=== PATIENT | male | born 1965 | race Caucasian/White ===

== ENCOUNTER → 2020-09-04 16:38 | Outpatient (BNVA) | payer OTHER, SELFPAY | PROVIDERS: Family Provider Nurse Practitioner; PCP Nurse Practitioner; Visit Provider Nurse Practitioner Family | DX: Z11.59 Encounter for screening for other viral diseases (principal) | CPT/HCPCS: 87635 ==

== ENCOUNTER → 2021-02-19 16:24 | Outpatient (BNVA) | payer SELFPAY | PROVIDERS: Family Provider Nurse Practitioner; PCP Nurse Practitioner; Visit Provider Nurse Practitioner | DX: I10 Essential (primary) hypertension (principal); M10.9 Gout, unspecified; J44.9 Chronic obstructive pulmonary disease, unspecified; J30.1 Allergic rhinitis due to pollen; Z20.822 Contact with and (suspected) exposure to COVID-19 | CPT/HCPCS: 80053; 83036; 84443; 84550; 85025 ==

== ENCOUNTER → 2021-07-23 13:43 | Outpatient (BNVA) | payer SELFPAY | PROVIDERS: Family Provider Nurse Practitioner; PCP Nurse Practitioner; Visit Provider Nurse Practitioner | DX: I10 Essential (primary) hypertension (principal) | CPT/HCPCS: 80053; 80061 ==

== ENCOUNTER → 2021-08-01 14:30 | Outpatient (BNVA) | payer SELFPAY | PROVIDERS: Family Provider Nurse Practitioner; PCP Nurse Practitioner; Visit Provider Nurse Practitioner | DX: R73.9 Hyperglycemia, unspecified (principal) | CPT/HCPCS: 83036 ==

== ENCOUNTER 2022-09-24 13:10 | Outpatient (CLI) | payer BC, MEDICAID, SELFPAY ==
--- NOTE | 2022-09-24 13:23 | XR_ITS ---
WS: [id number] Exam: XR lumbar spine 2-3V* [id number] Date/Time of Exam: 09/24/2022 1:28 PM Comparison 07/17/2016 Reason For Exam: M54.9 - Dorsalgia, unspecified No fracture or dislocation. Mild spondylosis. Mild degenerative disc change at L5-S1. Facet DJD at L5 -S1. There is straightening of lumbar spine. XR/XR lumbar spine 2-3V* [id number] IMPRESSION: 1. Mild degenerative changes and straightening. 2. No fracture or malalignment.
--- NOTE | 2022-09-24 13:23 | XR_ITS ---
WS: [id number] Exam: XR hip RT 2-3V wo/w pel* [id number] Date/Time of Exam: 09/24/2022 1:28 PM Reason For Exam: M54.9 - Dorsalgia, unspecified No fracture or dislocation. Minimal degenerative change of the acetabulum. The joint space is relativ ashley well preserved. Normal soft tissues. XR/XR hip RT 2-3V wo/w pel* [id number] IMPRESSION: 1. Minimal degenerative change of the acetabulum. No fracture or other signific ant finding.
--- NOTE | 2022-09-24 13:23 | XR_ITS ---
WS: [id number] Exam: XR knee RT 3V* [id number] Date/Time of Exam: 09/24/2022 1:28 PM Reason For Exam: M25.561 - Pain in right knee No fracture or dislocation. Joint compartments are well-maintained. No joint effusion. Hardware noted in the upper tibia. XR/XR knee RT 3V* [id number] IMPRESSION: 1. No fracture or other significant finding.
== END 2022-09-24 13:11 | disposition home or self-care (01) ==
LOC: RAD 13:12
PROVIDERS: PCP Nurse Practitioner; Visit Provider Nurse Practitioner
DX: M16.11 Unilateral primary osteoarthritis, right hip (principal); M25.561 Pain in right knee; M47.896 Other spondylosis, lumbar region; I73.9 Peripheral vascular disease, unspecified; I10 Essential (primary) hypertension; M10.9 Gout, unspecified; Z79.899 Other long term (current) drug therapy
CPT/HCPCS: 72100; 73502; 73562; 80053; 80061; 81000; 83036; 83721; 84443; 84550

== ENCOUNTER 2022-10-31 09:24 | Inpatient (IN) | payer BC, SELFPAY ==
[2022-10-31] VITALS (16 sets, daily range): BP systolic 95–138; BP diastolic 54–81; PULSE 83–116; RESP 17–26; TEMP 36.7–36.9; O2SAT 82–93; BMI 47.3; BMI 48.9
--- NOTE | 2022-10-31 09:48 | XRR_ITS ---
PROCEDURE INFORMATION: Exam: XR Chest Exam date and time: 10/31/2022 9:53 AM Age: 57 years old Clinical indication: Cough and fever and shortness of breath; Additional info: SOB, cough and fever TECHNIQUE: Imaging protocol: Radiologic exam of the chest. Views: 1 view. COMPARISON: CR XR chest 1V [id number] 07/01/2018 10:15 AM FINDINGS: Lungs: Airspace consolidation in the mid left lung. Pleural spaces: Unremarkable. No pleural effusion. No pneumothorax. Heart/Mediastinum: Unremarkable. No cardiomegaly. Bones/joints: Unremarkable. XR/XR chest 1V portable [id number] IMPRESSION: Left lung pneumonia.
[2022-10-31 10:01] LABS: Basophils # 0.1 10^3/uL (0.0-0.1); Basophils % 0.3 %; Hematocrit 52.2 % (42.0-52.0); Hemoglobin 16.8 g/dL (11.7-16.6); Lymphocytes # 0.6 10^3/uL (0.8-4.8); Lymphocytes % 3.1 %; Mean Corpuscular HGB Conc 32.2 g/dL (30.0-36.0); Mean Corpuscular Hemoglobin 33.1 pg (28.0-34.0); Mean Corpuscular Volume 102.8 fl (80-94); Mean Platelet Volume 10.2 fL (7.4-10.4); Monocytes # 1.8 10^3/uL (0.2-0.9); Monocytes % 9.5 %; Neutrophils # 16.25 10^3/uL (1.8-7.7); Neutrophils % 86.7 %; Nucleated Red Blood Cells % 0 %; Platelet Count 240 10^3/cmm (130-400); Red Blood Count 5.08 10^6/uL (4.1-5.3); Red Cell Distribution Width 13.6 % (12.1-15.1); White Blood Count 18.7 10^3/uL (4.0-10.0)
--- NOTE | 2022-10-31 10:03 | W.ED.SOB ---
Documented by User: JANICE Meadows 11/01/22 07:17 HPI - SOB/Dyspnea General: Chief Complaint: Shortness of Breath/Dyspnea Stated Complaint: SOB, chest pain Time Seen by Provider: 10/31/22 09:48 History of Present Illness: HPI Narrative: Patient is a 57-year-old male comes to the ED with shortness of breath. Patient has a medical history of COPD and hypertension. Patient is not on any oxygen at home and uses albuterol nebulizer breathing treatments as needed for any shortness of breath. Symptoms started approximately 2 weeks ago. He has a productive cough with yellowish sputum color. He also reports having fever as well. Shortness of breath is worsened over the past 2 weeks. Over the past couple days he has developed some pleuritic chest pain on the left side. Associated symptoms: Reports chest pain and fever(s); Deny abdominal pain, nausea, orthopnea, palpitations or vomiting Review of Systems Const: Reports: fever(s); Denies: chills or fatigue Eyes: Denies: change in vision or eye discomfort ENMT: Denies: throat pain, odynophagia, nasal discharge or nasal congestion Card: Reports: chest pain; Denies: palpitations, edema, swelling of feet/ankles, dyspnea on exertion or orthopnea Resp: Reports: dyspnea, productive cough, wheezing and pain on inspiration; Denies: non-productive cough GI: Denies: abdominal pain, nausea, vomiting, diarrhea, constipation or hematochezia : Denies: flank pain, difficulty urinating, dysuria or hematuria Musc: Denies: neck pain, back pain or extremity swelling Skin/Breast: Denies: rash or new lesions Neuro: Denies: headache(s), numbness in extremities or weakness in extremities PFS ED PFSH: Medical History (Updated 10/31/22 @ 13:23 by Georgi Lerma MD) Cigarette smoker COPD (chronic obstructive pulmonary disease) Essential (primary) hypertension Gout Hyperlipidemia Obstructive sleep apnea Patient reports he is intolerant of mask Seasonal allergic rhinitis due to pollen Surgical History (Updated 10/31/22 @ 13:15 by Georgi Lerma MD) History of hand surgery History of open reduction and internal fixation (ORIF) procedure Right tib/fib Family History Other Diabetes Heart disease Social History Smoking and tobacco status: current every day smoker Second hand smoke exposure: No Smoking risk assessment/counseling performed?: No Alcohol intake: current Alcohol intake frequency: holidays/special occasions only Desire information about alcohol rehabilitation?: No Counseling given: No Desire information about substance/drug rehabilitation?: No Counseling given: No Adopted: No Caregiver/support person: No Lives independently: Yes Household members: spouse Housing: House Marital status: Number of children: 2 service: No Current occupational status: employed History of recent travel: No Current gender identity: Male Physical Exam Const: COMMON NORMALS: patient oriented x3 and alert GENERAL APPEARANCE: cooperative HENMT: COMMON NORMALS: normocephalic HEAD & SCALP: normocephalic MOUTH: Normal oral and palatal mucosa present THROAT: posterior oropharynx normal and uvula midline Neck/C-Spine: COMMON NORMALS: supple GENERAL: Yes normal visual inspection Resp: COMMON NORMALS: normal respiratory effort, No retractions and No use of accessory muscles AUSCULTATION: wheezes expiratory wheezes and throughout and diminished lung sounds bilateral in the lower lung gusman Cardio: COMMON NORMALS: regular rate, regular rhythm, S1 normal heart sound present, S2 normal heart sound present, No gallops present (Cardio), No clicks present (Cardio), No murmurs present (Cardio) and Peripheral pulses 2+ throughout RATE: regular rate RHYTHM: regular rhythm HEART SOUNDS: S1 normal heart sound present and S2 normal heart sound present PERIPHERAL PULSES: Peripheral pulses 2+ throughout GI: COMMON NORMALS: Normal to inspection, nondistended, normoactive bowel sounds present, Soft to palpation, non-tender and no masses PALPATION: Yes Soft to palpation : COMMON NORMALS: Yes no CVA tenderness BLADDER/KIDNEY EXAM: Yes no CVA tenderness Back/Pelvis: COMMON NORMALS: no CVA tenderness Extremity: COMMON NORMALS: normal to inspection Neuro: COMMON NORMALS: patient oriented x3 SENSORIUM/ORIENTATION: Yes alert GAIT: Yes Normal gait present Skin: GENERAL SKIN EXAM: dry skin Course Vital Signs: Vital signs: Vital Signs Temperature 97.9 F 11/01/22 04:00 Pulse Rate 98 11/01/22 04:01 Respiratory Rate 18 11/01/22 04:01 Blood Pressure 114/67 11/01/22 04:00 Pulse Oximetry 92 11/01/22 04:01 Oxygen Delivery Me thod 11/01/22 04:01 Oxygen Flow Rate 5 11/01/22 04:01 MDM - SOB/Dyspnea Lab Data 10/31/22 09:50 10/31/22 09:50 Labs/Radiology: Radiology Impressions Chest X-Ray 10/31/22 09:48 IMPRESSION: Left lung pneumonia. Laboratory Results WBC 18.7 10^3/uL (4.0-10.0) H 10/31/22 09:50 RBC 5.08 10^6/uL (4.1-5.3) 10/31/22 09:50 Hgb 16.8 g/dL (11.7-16.6) H 10/31/22 09:50 Hct 52.2 % (42.0-52.0) H 10/31/22 09:50 MCV 102.8 fl (80-94) H 10/31/22 09:50 MCH 33.1 pg (28.0-34.0) 10/31/22 09:50 MCHC 32.2 g/dL (30.0-36.0) 10/31/22 09:50 RDW 13.6 % (12.1-15.1) 10/31/22 09:50 Plt Count 240 10^3/cmm (130-400) 10/31/22 09:50 MPV 10.2 fL (7.4-10.4) 10/31/22 09:50 Neut % (Auto) 86.7 % 10/31/22 09:50 Lymph % (Auto) 3.1 % 10/31/22 09:50 [place] % (Auto) 9.5 % 10/31/22 09:50 Eos % (Auto) 0.0 % 10/31/22 09:50 Baso % (Auto) 0.3 % 10/31/22 09:50 Neut # (Auto) 16.25 10^3/uL (1.8-7.7) H 10/31/22 09:50 Lymph # (Auto) 0.6 10^3/uL (0.8-4.8) L 10/31/22 09:50 [place] # (Auto) 1.8 10^3/uL (0.2-0.9) H 10/31/22 09:50 Eos # (Auto) 0.0 10^3/uL (0.0-0.8) 10/31/22 09:50 Baso # (Auto) 0.1 10^3/uL (0.0-0.1) 10/31/22 09:50 Nucleated RBC % (auto) 0 % 10/31/22 09:50 Nucleated RBCs # 0.0 /100WBC 10/31/22 09:50 Specimen Type Arterial 10/31/22 10:22 Sample Site Radial, right 10/31/22 10:22 ABG pH 7.38 (7.35-7.45) 10/31/22 10:22 ABG pCO2 47.5 mmHg (35-45) H 10/31/22 10:22 ABG pO2 67.4 mmHg (80.0-100.0) L 10/31/22 10:22 ABG HCO3 28.2 mmol/L (22-26) H 10/31/22 10:22 ABG O2 Saturation 95.1 10/31/22 10:22 ABG Base Excess 2.2 mmol/L (-2.0-2.0) H 10/31/22 10:22 Lambert Test Pos 10/31/22 10:22 A-a O2 Gradient 17.1 mmHg (5-10) H 10/31/22 10:22 Hematocrit 52.2 % (42-52) H 10/31/22 10:22 Hgb O2 Saturation 93.1 % (95-100) L 10/31/22 10:22 Carboxyhemoglobin 1.6 %THgb (0.4-20.1) 10/31/22 10:22 Methemoglobin 0.5 % (0.4-1.5) 10/31/22 10:22 Total Hemoglobin 17.0 g/dL (14-18) 10/31/22 10:22 Sodium 133.0 mmol/L (131-143) 10/31/22 10:22 Potassium 4.2 mmol/L (3.5-5.0) 10/31/22 10:22 Glucose 124.0 mg/dL (70-115) H 10/31/22 10:22 Ionized Calcium 1.2 mmol/L (1.1-1.4) 10/31/22 10:22 O2 Delivery Device Nc 10/31/22 10:22 O2 Liters/Min 4.0 % 10/31/22 10:22 FiO2 36.0 % 10/31/22 10:22 Sequencing Machine Operator ID Cak 10/31/22 10:22 Sodium 132 mmol/L (136-145) L 10/31/22 09:50 Potassium 4.6 mmol/L (3.5-5.1) 10/31/22 09:50 Chloride 95 mmol/L (98-107) L 10/31/22 09:50 Carbon Dioxide 25 mmol/L (22-29) 10/31/22 09:50 Anion Gap 16.6 (5-19) 10/31/22 09:50 BUN 23 mg/dL (6-20) H 10/31/22 09:50 Creatinine 1.1 mg/dL (0.7-1.2) 10/31/22 09:50 GFR Calculation 69.0 mL/min (90-130) L 10/31/22 09:50 Glucose 129 mg/dL (65-115) H 10/31/22 09:50 Calculated Osmolality 279 mOsm/kg (285-295) L 10/31/22 09:50 Lactic Acid 1.7 mmol/L (0.5-2.2) 10/31/22 09:50 Calcium 9.2 mg/dL (8.5-10.5) 10/31/22 09:50 Total Bilirubin 0.5 mg/dL (0.15-1.2) 10/31/22 09:50 AST 38 U/L (0-40) 10/31/22 09:50 ALT 27 U/L (0-41) 10/31/22 09:50 Alkaline Phosphatase 85 U/L (40-130) 10/31/22 09:50 Troponin T Baseline 20 ng/L (0-15) H 10/31/22 09:50 Troponin T 120 Minute 20.50 ng/L (0-15) H 10/31/22 11:55 Delta Troponin T 0.50 ABS# (0-10) 10/31/22 11:55 Total Protein 7.0 g/dL (6.6-8.7) 10/31/22 09:50 Albumin 3.9 g/dL (3.5-5.2) 10/31/22 09:50 Globulin 3.1 g/dL (1.3-4.6) 10/31/22 09:50 Influenza Type A Ag Positive (Negative) H 10/31/22 10:49 Influenza Type B Ag Negative (Negative) 10/31/22 10:49 SARS-CoV-2 Ag (Rapid) negative (Negative) 10/31/22 10:49 Discharge Plan Discharge Patient Disposition: Admitted As Inpatient Admit Provider: Georgi Lerma Clinical Impression: Community acquired pneumonia, Acute exacerbation of chronic obstructive airways disease Condition: Stable Sign Out Sign Out Data: Patient Sign Out occurred on 10/31/22 at 12:03. Patient's care was discussed, and care was transferred from to Alden Rubi DO. Coding Level of Care Code ED Professor Of Mathematics for Chg Fwd Exam Comprehensive Documented by User: Alden Rubi DO 10/31/22 12:39 HPI - SOB/Dyspnea General: Chief Complaint: Shortness of Breath/Dyspnea Stated Complaint: SOB, chest pain Time Seen by Provider: 10/31/22 09:48 PFSH ED PFSH: Medical History (Updated 10/31/22 @ 13:23 by Georgi Lerma MD) Cigarette smoker COPD (chronic obstructive pulmonary disease) Essential (primary) hypertension Gout Hyperlipidemia Obstructive sleep apnea Patient reports he is intolerant of mask Seasonal allergic rhinitis due to pollen Surgical History (Updated 10/31/22 @ 13:15 by Georgi Lerma MD) History of hand surgery History of open reduction and internal fixation (ORIF) procedure Right tib/fib Family History Other Diabetes Heart disease Social History Smoking and tobacco status: current every day smoker Second hand smoke exposure: No Smoking risk assessment/counseling performed?: No Alcohol intake: current Alcohol intake frequency: holidays/special occasions only Desire information about alcohol rehabilitation?: No Counseling given: No Desire information about substance/drug rehabilitation?: No Counseling given: No Adopted: No Caregiver/support person: No Lives independently: Yes Household members: spouse Housing: House Marital status: Number of children: 2 service: No Current occupational status: employed History of recent travel: No Current gender identity: Male Course Vital Signs: Vital signs: Vital Signs Temperature 97.9 F 11/01/22 04:00 Pulse Rate 98 11/01/22 04:01 Respiratory Rate 18 11/01/22 04:01 Blood Pressure 114/67 11/01/22 04:00 Pulse Oximetry 92 11/01/22 04:01 Oxygen Delivery Me thod 11/01/22 04:01 Oxygen Flow Rate 5 11/01/22 04:01 MDM - SOB/Dyspnea Medical Decision Making 57-year-old male initially seen by midlevel with large left lower lobe pneumonias requiring 5 L normally is not on oxygen. Elevated white count with a left shift cultures have been ordered patient started on IV antibiotics discussed Dr. Lerma he is already reviewed the chart will admit he has written the orders for the admission. Seen and examined the patient findings unchanged from documented by midlevel. Medical Records I reviewed the patient's medical records. Lab Data I reviewed the patient's lab results. 10/31/22 09:50 10/31/22 09:50 Labs/Radiology: Radiology Impressions Chest X-Ray 10/31/22 09:48
--- NOTE | 2022-10-31 10:09 | ECG_ITS ---
[facility] Test Date: 2022-10-31 Pat Name: Jason Thurman Department: Room: Gender: Male Cad Technician: : 1965 Requested By: Alden Leonard Order Number: [id number] Conrado MD: Marjorie Carrasco M.D. Measurements Intervals [place] Rate: 102 P: 68 MA: 161 QRS: 113 QRSD: 97 T: 43 QT: 346 QTc: 452 Interpretive Statements SINUS TACHYCARDIA INCOMPLETE RIGHT BUNDLE BRANCH BLOCK Compared to ECG 07/01/2018 09:44:43 Incomplete right bundle-branch block now present Atrial abnormality now present Sinus rhythm no longer present Electronically Signed On 11-01-2022 7:50:10 ELECTRICIAN STATION ASSISTANT by Marjorie Carrasco M.D. [id number]
[2022-10-31] MEDS: ipratropium-albuterol 3 mL Neb 6 ML INHALATION (10:19)
[2022-10-31 10:25] LABS: Alanine Aminotransferase 27 U/L (0-41); Albumin Level 3.9 g/dL (3.5-5.2); Alkaline Phosphatase 85 U/L (40-130); Anion Gap 16.6 (5-19); Aspartate Amino Transferase 38 U/L (0-40); Blood Urea Nitrogen 23 mg/dL (6-20); Calcium 9.2 mg/dL (8.5-10.5); Carbon Dioxide 25 mmol/L (22-29); Chloride 95 mmol/L (98-107); Globulin 3.1 g/dL (1.3-4.6); Glucose 129 mg/dL (65-115); Osmolality Calculated 279 mOsm/kg (285-295); Potassium 4.6 mmol/L (3.5-5.1); Sodium 132 mmol/L (136-145); Total Bilirubin 0.5 mg/dL (0.15-1.2)
[2022-10-31 10:27] LABS: Troponin(5th) Baseline 20 ng/L (0-15)
[2022-10-31] MEDS: cefTRIAXone 1,000 MG in sodium chloride 0.9% (plus) 50 ML 100 MG IV (10:30)
[2022-10-31 10:33] LABS: ABG PCO2 47.5 mmHg (35-45); ABG PH Result 7.38 (7.35-7.45); Alveolar-Arterial Oxygen Gradi 17.1 mmHg (5-10); Arterial Blood Gas Hematocrit 52.2 % (42-52); Base Excess ABG 2.2 mmol/L (-2.0-2.0); Blood Gas Allen Test Pos; Blood Gas Operator Identificat CAK; Blood Gas Sample Site Radial, right; Blood Gas Sample Type Arterial; Carboxyhemoglobin 1.6 %THgb (0.4-20.1); HCO3 ABG 28.2 mmol/L (22-26); HGB O2 Sat 93.1 % (95-100); Ionized Calcium Level - ABG 1.2 mmol/L (1.1-1.4); Methemoglobin 0.5 % (0.4-1.5); Oxygen Device NC; Oxygen Saturation ABG 95.1; PO2 ABG 67.4 mmHg (80.0-100.0); Potassium Level - ABG 4.2 mmol/L (3.5-5.0)
[2022-10-31 11:16] LABS: Influenza A by IFA Positive (Negative); Influenza B by IFA Negative (Negative)
[2022-10-31 11:19] LABS: SARS Covid-2 Antigen negative (Negative)
[2022-10-31] MEDS: azithromycin 500 MG in sodium chloride 0.9% 250 ML 250 MG IV (11:22)
[2022-10-31 11:30] LABS: Lactic Sepsis W/Reflex 1.7 mmol/L (0.5-2.2)
--- NOTE | 2022-10-31 12:06 | ECG_ITS ---
[facility] Test Date: 2022-10-31 Pat Name: Jason Thurman Department: Room: Gender: Male Devulcanizer Charger: : 1965 Requested By: Abelino Hernandez Order Number: [id number] Camp MD: Marjorie Carrasco M.D. Measurements Intervals [place] Rate: 98 P: 68 [place]: 161 QRS: 110 QRSD: 99 T: 53 QT: 356 QTc: 455 Interpretive Statements SINUS RHYTHM INCOMPLETE RIGHT BUNDLE BRANCH BLOCK [90+ ms QRS DURATION, TERMINAL R IN V1/V2, 40+ ms S IN I/aVL/V4/V5/V6] RIGHT VENTRICULAR HYPERTROPHY [SOME/ALL OF: PROMINENT R IN V1, LATE TRANSITION, RAD, WILMAR, SSS] Compared to ECG 10/31/2022 10:09:00 Sinus tachycardia no longer present Electronically Signed On 11-01-2022 7:56:26 SCULPTURE CONSERVATOR by Marjorie Carrasco M.D. [id number]
--- NOTE | 2022-10-31 12:40 | P.HP_ITS ---
Providers/Chief Complaint Admitting Physician: Georgi Lerma MD, Hospitalist Primary Care Provider: ZOEY OsorioP-Oren Chief Complaint: SOB, chest pain History of Present Illness Jason Thurman is a 57 year old male the presents to the emergency department with significant shortness of breath. He has been short of breath for about 2 weeks, but worse lately. He has been producing some sputum but no hemoptysis. He has felt fever and chills at home but has not really taken his temperature. He reports at baseline he does wheeze some. Reports he always has a little bit of lower extremity swelling, but it is no more than usual. Reports he quit smoking 1 week ago. Review of Systems General: Reports: 10 or more systems reviewed and unremarkable except in HPI and below Const: Reports: fever(s) and chills Eyes: Denies: change in vision ENMT: Denies: throat pain Card: Reports: swelling of feet/ankles (chronic); Denies: chest pain Resp: Reports: dyspnea and productive cough; Denies: hemoptysis GI: Denies: abdominal pain, nausea, vomiting, hematemesis, hematochezia or melena : Denies: flank pain Musc: Denies: neck pain Skin/Breast: Denies: rash Neuro: Denies: headache(s) Psych: Denies: anxiety or depression Endo: Denies: polyuria Tony/Lymph: Denies: easy bruising All/Imm: Denies: urticaria Medications/Allergies Home Medications Medication Instructions Recorded Confirmed Last Taken Type nitroglycerin 0.4 mg sublingual 0.4 mg sublingual Q5M PRN chest 10/15/21 10/31/22 Unknown Rx tablet (Nitrostat) pain #25 tabs albuterol sulfate 90 mcg/actuation 2 puff inhalation Q6H PRN 09/24/22 10/31/22 Unknown Rx aerosol inhaler (ProAir HFA) shortness of breath or wheezing #18 grams allopurinol 300 mg tablet 300 mg PO BID #60 tabs 09/24/22 10/31/22 10/30/22 Rx clopidogrel 75 mg tablet (Plavix) 75 mg PO DAILY #30 tabs 09/24/22 10/31/22 10/30/22 Rx fluticasone propionate 110 2 puff inhalation BID #12 grams 1010/31/22 10/31/22 Rx mcg/actuation HFA aerosol inhaler (Flovent HFA) furosemide 20 mg tablet (Lasix) 20 mg PO BID #60 tabs 09/24/22 10/31/22 10/30/22 Rx metoprolol succinate 50 mg 50 mg PO DAILY #30 tabs 09/24/22 10/31/22 10/30/22 Rx tablet,extended release 24 hr (Toprol XL) montelukast 10 mg tablet 10 mg PO DAILY #30 tabs 09/24/22 10/31/22 10/30/22 Rx (Singulair) spironolactone 50 mg tablet 50 mg PO QAM #30 tabs 09/24/22 10/31/22 10/30/22 Rx valsartan 40 mg tablet (Diovan) 40 mg PO DAILY #30 tabs 09/24/22 10/31/22 10/30/22 Rx fenofibrate nanocrystallized 145 145 mg PO DAILY #30 tabs 10/01/22 10/31/22 1 12/31/21 Rx mg tablet (Tricor) albuterol sulfate 2.5 mg/3 mL 2.5 mg (3 mL) inhalation Q4H PRN 10/30/22 10/31/22 Unknown Rx (0.083 %) solution for nebulization shortness of breath or wheezing #75 mL Allergies Allergy/AdvReac Type Severity Reaction Status Date / Time No Known Allergies Allergy Verified 10/31/22 10:11 PFSH Acute PFSH: Medical History (Updated 10/31/22 @ 13:23 by Georgi Lerma MD) Cigarette smoker COPD (chronic obstructive pulmonary disease) Essential (primary) hypertension Gout Hyperlipidemia Obstructive sleep apnea Patient reports he is intolerant of mask Seasonal allergic rhinitis due to pollen Surgical History (Updated 10/31/22 @ 13:15 by Georgi Lerma MD) History of hand surgery History of open reduction and internal fixation (ORIF) procedure Right tib/fib Family History Other Diabetes Heart disease Social History Smoking and tobacco status: current every day smoker Second hand smoke exposure: No Smoking risk assessment/counseling performed?: No Alcohol intake: current Alcohol intake frequency: holidays/special occasions only Desire information about alcohol rehabilitation?: No Counseling given: No Desire information about substance/drug rehabilitation?: No Counseling given: No Adopted: No Caregiver/support person: No Lives independently: Yes Household members: spouse Housing: House Marital status: Number of children: 2 service: No Current occupational status: employed History of recent travel: No Current gender identity: Male Vitals/I&O/Wt Last Vital Signs Temp 98.1 F 10/31/22 09:30 Pulse 102 H 10/31/22 12:28 Resp 23 H 10/31/22 12:28 BP 103/54 10/31/22 12:28 Pulse Ox 92 10/31/22 12:28 O2 Del Method 10/31/22 12:28 O2 Flow Rate 5 10/31/22 12:28 10/30/22 10/31/22 10/31/22 22:59 06:59 14:59 Intake Total 300 / 300 Balance 300 / 300 Weight last 48 hrs Weight 149.685 kg Physical Exam Narrative: General exam is an obese white male, with elevated respiratory rate and mild retractions. Wheezing is heard without a stethoscope. He is able to complete full sentences. HEENT: Atraumatic normocephalic. Oropharynx is crowded but clear Neck is supple, obese, no lymphadenopathy or thyromegaly Cardiovascular tachycardic, no murmur Lungs bilateral expiratory wheezes. No crackles. Diminished breath sounds noted on the left. Abdomen is soft obese nontender with positive bowel sounds. No obvious or ganomegaly but exam difficult. Small umbilical hernia is noted, which is easily reducible. exam is deferred Extremities show no cyanosis or clubbing. 1-2+ edema is noted bilaterally with ichthyosis consistent with longstanding venous stasis. Refill is quick. Skin see findings above Neuro no obvious focal deficits. Data 10/31/22 09:50 10/31/22 09:50 Other Labs: ABG demonstrates pH 7.38, PCO2 of 47, PO2 of 67 on 4 L LFTs are normal Troponin 20 at baseline and repeat at 2 hours is 20 Albumin 3.9 Calcium normal Influenza a is positive. Influenza B negative. COVID rapid is negative. Chest x-ray demonstrates left lung pneumonia. Blood cultures have been drawn but I believe they were drawn after antibiotics were given EKG sinus rhythm, borderline tachycardia, right axis deviation, possible RVH, no significant ST-T wave changes. A&P Assessment and plan (1) Community acquired pneumonia: Patient presents with history of illness for the last 2 weeks. X-rays impressive for pneumonia, and there is concern for secondary bacterial pneumonia even though influenza a is positive. Sputum culture Initiate antibiotics for Rocephin and azithromycin for community-acquired pneumonia Wean oxygen as tolerated. Prior to developing illness he is on room air at home. MRSA PCR (2) Acute exacerbation of chronic obstructive airways disease: Patient with active wheezing consistent with exacerbation of COPD DuoNeb every 4 hours Budesonide twice daily He received a dose of Solu-Medrol in the emergency department. Continue 60 mg IV every 12 hours (3) Influenza A: Influenza A is positive Is impossible currently to know exactly when his illness started Secondary to his degree of illness now and hypoxia will initiate Tamiflu 75 mg twice daily with plan for 5 days of treatment. See above (4) Essential (primary) hypertension: Continue home medications Plan Presumed coronary disease. About 1 year ago or more patient had some chest discomfort, and was started on Plavix, ultimately A. fib rate for possibility of coronary disease. A nuclear stress test had been ordered at that time, but according to the patient insurance refused this. We will not change these medicines at this time. This should be readdressed as an outpatient as he currently does not have symptoms of coronary ischemia. Full code Lovenox for DVT prophylaxis Attestations Medical Necessity Statement*: Will need greater than 2 midnight stay for evaluation and treatment of pneumonia, influenza A, COPD exacerbation Coding Level of Care Code Acute Electrical Linesworker for [facility] Sur[facility] Diagnoses Community acquired pneumonia J18.9 Acute exacerbation of chronic obstructive airways disease J44.1 Influenza A J10.1 Essential (primary) hypertension I10
[2022-10-31] MEDS: enoxaparin 40 mg/0.4 mL Syringe SUBCUT (12:53)
--- NOTE | 2022-10-31 14:41 | PC.NURSE ---
infused 2,000 mls of fluid and sent the remaining three bags with pt to [facility]
[2022-10-31 16:10] LABS: Troponin 5 6HR 13.24 ng/L (0-15)
[2022-10-31 16:24] LABS: Troponin 5 6HR Delta -6.76 ng/L (0-12)
[2022-10-31] MEDS: ipratropium-albuterol 3 mL Neb INHALATION ×2 (16:47→20:23)
[2022-10-31] MEDS: oseltamivir phosphate 75 mg Capsule PO (17:42)
[2022-10-31] MEDS: allopurinol 300 mg Tablet PO (17:42)
[2022-10-31] MEDS: budesonide 0.5 mg/2 mL Neb INHALATION (20:23)
[2022-11-01] VITALS (16 sets, daily range): BP systolic 104–140; BP diastolic 65–74; PULSE 74–102; RESP 16–19; TEMP 36.4–36.9; O2SAT 91–95
[2022-11-01] MEDS: ipratropium-albuterol 3 mL Neb INHALATION ×6 (00:33→20:40)
[2022-11-01] MEDS: spironolactone 25 mg Tablet 50 MG PO (04:30)
[2022-11-01 05:52] LABS: Basophils % 0.2 %; Lymphocytes # 0.7 10^3/uL (0.8-4.8); Lymphocytes % 3.7 %; Mean Corpuscular HGB Conc 31.4 g/dL (30.0-36.0); Mean Corpuscular Hemoglobin 33.3 pg (28.0-34.0); Mean Platelet Volume 10.1 fL (7.4-10.4); Monocytes # 0.7 10^3/uL (0.2-0.9); Monocytes % 3.5 %; Neutrophils % 91.8 %; Nucleated Red Blood Cells % 0 %; Platelet Count 269 10^3/cmm (130-400); Red Blood Count 4.81 10^6/uL (4.1-5.3); Red Cell Distribution Width 13.7 % (12.1-15.1)
[2022-11-01 06:16] LABS: Alanine Aminotransferase 28 U/L (0-41); Albumin Level 3.3 g/dL (3.5-5.2); Alkaline Phosphatase 84 U/L (40-130); Anion Gap 11.9 (5-19); Aspartate Amino Transferase 29 U/L (0-40); Blood Urea Nitrogen 27 mg/dL (6-20); Calcium 9.6 mg/dL (8.5-10.5); Carbon Dioxide 30 mmol/L (22-29); Chloride 95 mmol/L (98-107); Globulin 4.5 g/dL (1.3-4.6); Glucose 144 mg/dL (65-115); Osmolality Calculated 282 mOsm/kg (285-295); Potassium 4.9 mmol/L (3.5-5.1); Sodium 132 mmol/L (136-145); Total Bilirubin 0.2 mg/dL (0.15-1.2); Total Protein 7.8 g/dL (6.6-8.7)
[2022-11-01] MEDS: budesonide 0.5 mg/2 mL Neb INHALATION ×2 (07:58→20:40)
[2022-11-01] MEDS: metoprolol succinate ER (24 HR) 50 mg Tablet PO (10:19)
[2022-11-01] MEDS: allopurinol 300 mg Tablet PO ×2 (10:19→17:44)
[2022-11-01] MEDS: clopidogrel 75 mg Tablet PO (10:19)
[2022-11-01] MEDS: fenofibrate 145 mg Tablet PO (10:19)
[2022-11-01] MEDS: montelukast sodium 10 mg Tablet PO (10:19)
[2022-11-01] MEDS: losartan 50 mg Tablet 25 MG PO (10:20)
[2022-11-01] MEDS: oseltamivir phosphate 75 mg Capsule PO ×2 (10:25→17:44)
--- NOTE | 2022-11-01 11:47 | P.PN_ITS ---
Subjective Subjective: He feels he is gradually improving. He is still having wheezing. He is coughing, coughing up phlegm, states that now phlegm is coming up more easily. He does not normally use supplemental oxygen. He states that the pleuritic burning in his lungs has been gradually improving. Vitals/I&O/Wt Last Vital Signs Temp 98.4 F 11/01/22 11:25 Pulse 95 11/01/22 11:25 Resp 18 11/01/22 11:25 BP 140/74 11/01/22 11:25 Pulse Ox 94 11/01/22 11:25 O2 Del Method 11/01/22 11:25 O2 Flow Rate 5 11/01/22 07:58 10/31/22 11/01/22 11/01/22 22:59 06:59 14:59 Intake Total 240 / 540 240 / 780 240 / 240 Output Total 1220 / 1220 Balance 240 / 540 -980 / -440 240 / 240 Weight last 48 hrs Weight 154.477 kg Weight 149.685 kg Physical Exam Narrative: Sitting up at edge of bed. Const: COMMON NORMALS: patient oriented x3 and alert GENERAL APPEARANCE: cooperative NUTRITIONAL APPEARANCE: obese ORIENTATION/CONSCIOUSNESS: Yes awake HENMT: COMMON NORMALS: oropharynx normal Neck/C-Spine: COMMON NORMALS: no JVD Resp: COMMON NORMALS: normal respiratory effort AUSCULTATION: wheezes and diminished lung sounds OTHER: NC Cardio: COMMON NORMALS: no JVD, regular rhythm, S1 normal heart sound present, S2 normal heart sound present and No murmurs present (Cardio) RHYTHM: regular rhythm HEART SOUNDS: S1 normal heart sound present and S2 normal heart sound present GI: COMMON NORMALS: Normal to inspection, nondistended, normoactive bowel sounds present, Soft to palpation and non-tender PALPATION: Yes Soft to palpation Extremity: COMMON NORMALS: no joint enlargement and no pedal edema Neuro: COMMON NORMALS: patient oriented x3 and moves all extremities SENSORIUM/ORIENTATION: Yes alert Skin: COMMON NORMALS: no rashes or lesions noted GENERAL SKIN EXAM: no rashes or lesions noted Data 11/01/22 05:20 11/01/22 05:20 Micro: Microbiology 10/31/22 16:50 Gram Stain - Final Sputum - Expectorated Sputum 10/31/22 12:50 Blood Culture - Preliminary Blood SPECIMEN COLLECTED 10/31/22 12:45 Blood Culture - Preliminary Blood SPECIMEN COLLECTED A&P Assessment and plan (1) Community acquired pneumonia: Acute hypoxic respiratory failure requiring 5 L nasal cannula oxygen. Oxygen requirement so far not improved. Subjectively feels slightly better. Continue ceftriaxone, azithromycin. Follow-up sputum culture. MRSA PCR. Wean oxygen as tolerated. Prior to developing illness he is on room air at home. (2) Acute exacerbation of chronic obstructive airways disease: Severe COPD exacerbation with dyspnea, productive cough, hypoxia. Continues to have wheezing, diminished air entry. For now we will not decrease solu Medrol just yet. Continue antibiotics as above. Follow-up culture. Patient with active wheezing consistent with exacerbation of COPD DuoNeb every 4 hours Budesonide twice daily He received a dose of Solu-Medrol in the emergency department. Continue 60 mg IV every 12 hours (3) Influenza A: Continue Tamiflu. Supportive care as above. Influenza A is positive (4) Essential (primary) hypertension: Continue home medications Plan Presumed coronary disease. About 1 year ago or more patient had some chest discomfort, and was started on Plavix, ultimately A. fib rate for possibility of coronary disease. A nuclear stress test had been ordered at that time, but according to the patient insurance refused this. We will not change these medicines at this time. This should be readdressed as an outpatient as he currently does not have symptoms of coronary ischemia. Full code Lovenox for DVT prophylaxis Attestations Medical Necessity Statement*: Continue admission for management of hypoxic respiratory failure, community-acquired pneumonia superimposed on influenza A pneumonia, COPD exacerbation. Coding Level of Care Code Acute Manager Voice for [facility] Fwd Exam Comprehensive Diagnoses Community acquired pneumonia J18.9 Acute exacerbation of chronic obstructive airways disease J44.1 Influenza A J10.1 Essential (primary) hypertension I10
[2022-11-01] MEDS: cefTRIAXone 1,000 MG in sodium chloride 0.9% (plus) 50 ML 100 MG IV (11:57)
[2022-11-01] MEDS: azithromycin 500 MG in sodium chloride 0.9% 250 ML 250 MG IV (12:29)
[2022-11-01] MEDS: enoxaparin 40 mg/0.4 mL Syringe SUBCUT (14:32)
[2022-11-02] VITALS (16 sets, daily range): BP systolic 112–130; BP diastolic 68–83; PULSE 73–91; RESP 16–21; TEMP 36.4–36.7; O2SAT 92–96
[2022-11-02] MEDS: ipratropium-albuterol 3 mL Neb INHALATION ×5 (03:34→21:26)
[2022-11-02] MEDS: spironolactone 25 mg Tablet 50 MG PO (05:08)
[2022-11-02 06:10] LABS: Basophils % 0.2 %; Hematocrit 50.9 % (42.0-52.0); Hemoglobin 15.9 g/dL (11.7-16.6); Lymphocytes # 1.2 10^3/uL (0.8-4.8); Lymphocytes % 6.4 %; Mean Corpuscular HGB Conc 31.2 g/dL (30.0-36.0); Mean Corpuscular Hemoglobin 32.9 pg (28.0-34.0); Mean Corpuscular Volume 105.4 fl (80-94); Mean Platelet Volume 9.8 fL (7.4-10.4); Monocytes # 1.1 10^3/uL (0.2-0.9); Monocytes % 5.8 %; Neutrophils # 16.64 10^3/uL (1.8-7.7); Nucleated Red Blood Cells % 0 %; Platelet Count 302 10^3/cmm (130-400); Red Blood Count 4.83 10^6/uL (4.1-5.3); Red Cell Distribution Width 13.9 % (12.1-15.1); White Blood Count 19.1 10^3/uL (4.0-10.0)
[2022-11-02 06:27] LABS: Blood Urea Nitrogen 25 mg/dL (6-20); Calcium 9.6 mg/dL (8.5-10.5); Carbon Dioxide 32 mmol/L (22-29); Chloride 96 mmol/L (98-107); Glomerular Filtration Rate 116.2 mL/min (90-130); Glucose 128 mg/dL (65-115); Osmolality Calculated 282 mOsm/kg (285-295); Sodium 133 mmol/L (136-145)
[2022-11-02] MEDS: budesonide 0.5 mg/2 mL Neb INHALATION ×2 (08:17→21:26)
[2022-11-02] MEDS: montelukast sodium 10 mg Tablet PO (09:13)
[2022-11-02] MEDS: metoprolol succinate ER (24 HR) 50 mg Tablet PO (09:13)
[2022-11-02] MEDS: clopidogrel 75 mg Tablet PO (09:14)
[2022-11-02] MEDS: allopurinol 300 mg Tablet PO ×2 (09:14→17:49)
[2022-11-02] MEDS: losartan 50 mg Tablet 25 MG PO (09:14)
[2022-11-02] MEDS: oseltamivir phosphate 75 mg Capsule PO ×2 (09:15→17:49)
[2022-11-02] MEDS: fenofibrate 145 mg Tablet PO (09:15)
[2022-11-02] MEDS: cefTRIAXone 1,000 MG in sodium chloride 0.9% (plus) 50 ML 100 MG IV (09:15)
[2022-11-02] MEDS: azithromycin 500 MG in sodium chloride 0.9% 250 ML 250 MG IV (11:43)
[2022-11-02] MEDS: enoxaparin 40 mg/0.4 mL Syringe SUBCUT (11:46)
--- NOTE | 2022-11-02 19:26 | PM.PN ---
Subjective Subjective: He is continuing to improve. Today he is breathing easier. Coughing less. Vitals/I&O/Wt Last Vital Signs Temp 97.8 F 11/02/22 15:18 Pulse 91 11/02/22 16:08 Resp 16 11/02/22 16:08 BP 125/72 11/02/22 15:18 Pulse Ox 92 11/02/22 16:08 O2 Del Method 11/02/22 16:08 O2 Flow Rate 3 11/02/22 16:08 11/02/22 11/02/22 11/02/22 06:59 14:59 22:59 Intake Total 780 / 780 300 / 1080 Output Total 400 / 400 400 / 400 Balance -400 / 620 380 / 380 300 / 680 Physical Exam Narrative: Sitting up at edge of bed. Const: COMMON NORMALS: patient oriented x3 and alert GENERAL APPEARANCE: cooperative NUTRITIONAL APPEARANCE: obese ORIENTATION/CONSCIOUSNESS: Yes awake HENMT: COMMON NORMALS: oropharynx normal Neck/C-Spine: COMMON NORMALS: no JVD Resp: COMMON NORMALS: normal respiratory effort AUSCULTATION: wheezes and diminished lung sounds OTHER: NC Cardio: COMMON NORMALS: no JVD, regular rhythm, S1 normal heart sound present, S2 normal heart sound present and No murmurs present (Cardio) RHYTHM: regular rhythm HEART SOUNDS: S1 normal heart sound present and S2 normal heart sound present GI: COMMON NORMALS: Normal to inspection, nondistended, normoactive bowel sounds present, Soft to palpation and non-tender PALPATION: Yes Soft to palpation Extremity: COMMON NORMALS: no joint enlargement and no pedal edema Neuro: COMMON NORMALS: patient oriented x3 and moves all extremities SENSORIUM/ORIENTATION: Yes alert Skin: COMMON NORMALS: no rashes or lesions noted GENERAL SKIN EXAM: no rashes or lesions noted Data 11/02/22 05:49 11/02/22 05:49 Micro: Microbiology 11/01/22 14:30 MRSA Culture - Final Nose 10/31/22 16:50 Gram Stain - Final Sputum - Expectorated Sputum Sputum Culture - Final A&P Assessment and plan (1) Community acquired pneumonia: Improving oxygenation, improving air entry, although still wheezing, still diminished, but not as badly as yesterday. Subjectively he is improving. Given persistence of wheezing, diminished air entry for now we will not decrease IV steroids. Continue ceftriaxone, azithromycin. Follow-up sputum culture. MRSA PCR. Wean oxygen as tolerated. Prior to developing illness he is on room air at home. (2) Acute exacerbation of chronic obstructive airways disease: Severe COPD exacerbation with dyspnea, productive cough, hypoxia. Continues to have wheezing, diminished air entry although is improving. For now we will not decrease solu Medrol just yet. Continue antibiotics as above. Follow-up culture. Patient with active wheezing consistent with exacerbation of COPD DuoNeb every 4 hours Budesonide twice daily He received a dose of Solu-Medrol in the emergency department. Continue 60 mg IV every 12 hours (3) Influenza A: Completed Tamiflu. Stop. Supportive care as above. Influenza A is positive (4) Essential (primary) hypertension: Continue home medications Plan Presumed coronary disease. About 1 year ago or more patient had some chest discomfort, and was started on Plavix, ultimately A. fib rate for possibility of coronary disease. A nuclear stress test had been ordered at that time, but according to the patient insurance refused this. We will not change these medicines at this time. This should be readdressed as an outpatient as he currently does not have symptoms of coronary ischemia. Full code Lovenox for DVT prophylaxis Attestations Medical Necessity Statement*: Continue admission for assessment of management of pneumonia and COPD distribution after influenza A infection, slowly improving hypoxia. Coding Level of Care Code Acute Baling Machine Tender for [facility] Diagnoses Community acquired pneumonia J18.9 Acute exacerbation of chronic obstructive airways disease J44.1 Influenza A J10.1 Essential (primary) hypertension I10
[2022-11-02 22:48] LABS: Glucose Point of Care 170 mg/dL (70-110)
[2022-11-03] VITALS (10 sets, daily range): BP systolic 118–161; BP diastolic 68–84; PULSE 72–95; RESP 18–22; TEMP 36.6–36.8; O2SAT 86–94
[2022-11-03] MEDS: ipratropium-albuterol 3 mL Neb INHALATION ×4 (01:30→12:24)
[2022-11-03 02:11] LABS: Basophils % 0.3 %; Hematocrit 54.1 % (42.0-52.0); Hemoglobin 16.5 g/dL (11.7-16.6); Lymphocytes # 1.2 10^3/uL (0.8-4.8); Lymphocytes % 7.3 %; Mean Corpuscular HGB Conc 30.5 g/dL (30.0-36.0); Mean Corpuscular Hemoglobin 32.9 pg (28.0-34.0); Mean Corpuscular Volume 107.8 fl (80-94); Mean Platelet Volume 10.1 fL (7.4-10.4); Monocytes # 0.7 10^3/uL (0.2-0.9); Monocytes % 4.6 %; Neutrophils # 13.72 10^3/uL (1.8-7.7); Neutrophils % 86.5 %; Nucleated Red Blood Cells % 0 %; Platelet Count 319 10^3/cmm (130-400); Red Blood Count 5.02 10^6/uL (4.1-5.3); Red Cell Distribution Width 14.1 % (12.1-15.1); White Blood Count 15.8 10^3/uL (4.0-10.0)
[2022-11-03 02:30] LABS: Blood Urea Nitrogen 22 mg/dL (6-20); Calcium 9.8 mg/dL (8.5-10.5); Carbon Dioxide 33 mmol/L (22-29); Chloride 99 mmol/L (98-107); Glomerular Filtration Rate 116.2 mL/min (90-130); Glucose 190 mg/dL (65-115); Osmolality Calculated 296 mOsm/kg (285-295); Sodium 139 mmol/L (136-145)
[2022-11-03 02:31] LABS: Anion Gap 12.3 (5-19); Potassium 5.3 mmol/L (3.5-5.1)
[2022-11-03] MEDS: spironolactone 25 mg Tablet 50 MG PO (05:12)
[2022-11-03] MEDS: budesonide 0.5 mg/2 mL Neb INHALATION (08:55)
[2022-11-03] MEDS: losartan 50 mg Tablet 25 MG PO (09:29)
[2022-11-03] MEDS: metoprolol succinate ER (24 HR) 50 mg Tablet PO (09:30)
[2022-11-03] MEDS: montelukast sodium 10 mg Tablet PO (09:30)
[2022-11-03] MEDS: clopidogrel 75 mg Tablet PO (09:30)
[2022-11-03] MEDS: allopurinol 300 mg Tablet PO (09:30)
[2022-11-03] MEDS: fenofibrate 145 mg Tablet PO (09:30)
[2022-11-03] MEDS: cefTRIAXone 1,000 MG in sodium chloride 0.9% (plus) 50 ML 100 MG IV (09:30)
[2022-11-03] MEDS: azithromycin 500 MG in sodium chloride 0.9% 250 ML 250 MG IV (11:23)
[2022-11-03] MEDS: enoxaparin 40 mg/0.4 mL Syringe SUBCUT (12:56)
--- NOTE | 2022-11-03 21:49 | P.DS_ITS ---
Discharge Providers Date of Admission: 10/31/22 14:22 Date of Discharge: November 03, 2022 Attending Provider at Admission: Georgi Lerma MD Attending Provider at Discharge: Iain Azul Primary Care Provider: CONSTANTINE Osorio Diagnoses at Discharge Discharge Diagnosis (1) Community acquired pneumonia: Status: Acute (2) Acute exacerbation of chronic obstructive airways disease: Status: Acute (3) Influenza A: Status: Acute (4) Essential (primary) hypertension: Status: Chronic Reason for Visit Reason for Visit: SOB, chest pain Hospital Course Hospital Course Pleasant 57-year-old gentleman was admitted after presenting with shortness of breath, found to have left-sided pneumonia, COPD assimilation, influenza A. Underwent course of treatment with Tamiflu, also treated with Rocephin, azithromycin, IV steroids, nebulization, required oxygen support 5 L nasal cannula recently. Had slow improvement with decreased air entry, wheezing was persistent, but gradually improved. Oxygenation improved, weaned down to 3 L nasal cannula . He is subjectively feeling much better. Due to mild hyperkalemia, potassium 5.3, on discharge started on amlodipine for hypertension, for now spironolactone and ARB are stopped. Please reassess potassium at next visit. About 1 year ago or more patient had some chest discomfort, and was started on Plavix, ultimately A. fib rate for possibility of coronary disease. A nuclear stress test had been ordered at that time, but according to the patient insurance refused this. Please reassess, consider referral for stress test. Physical Exam Narrative: Sitting up at edge of bed. Const: COMMON NORMALS: patient oriented x3 and alert GENERAL APPEARANCE: cooperative NUTRITIONAL APPEARANCE: obese ORIENTATION/CONSCIOUSNESS: Yes awake HENMT: COMMON NORMALS: oropharynx normal Neck/C-Spine: COMMON NORMALS: no JVD Resp: COMMON NORMALS: normal respiratory effort AUSCULTATION: wheezes and diminished lung sounds OTHER: NC Cardio: COMMON NORMALS: no JVD, regular rhythm, S1 normal heart sound present, S2 normal heart sound present and No murmurs present (Cardio) RHYTHM: regular rhythm HEART SOUNDS: S1 normal heart sound present and S2 normal heart sound present GI: COMMON NORMALS: Normal to inspection, nondistended, normoactive bowel sounds present, Soft to palpation and non-tender PALPATION: Yes Soft to palpation Extremity: COMMON NORMALS: no joint enlargement and no pedal edema Neuro: COMMON NORMALS: patient oriented x3 and moves all extremities SENSORIUM/ORIENTATION: Yes alert Skin: COMMON NORMALS: no rashes or lesions noted GENERAL SKIN EXAM: no rashes or lesions noted Discharge Data Studies Completed and Pending Completed Studies During Hospitalization Category Date Time Status XR chest 1V portable [id number] Stat Exams 10/31/22 09:48 Completed Pending at discharge Category Date Time Status Blood Culture Stat Lab 10/31/22 12:50 Results Radiology Impressions Chest X-Ray 10/31/22 09:48 IMPRESSION: Left lung pneumonia. Laboratory Results WBC 15.8 10^3/uL (4.0-10.0) H 11/03/22 01:44 RBC 5.02 10^6/uL (4.1-5.3) 11/03/22 01:44 Hgb 16.5 g/dL (11.7-16.6) 11/03/22 01:44 Hct 54.1 % (42.0-52.0) H 11/03/22 01:44 MCV 107.8 fl (80-94) H 11/03/22 01:44 MCH 32.9 pg (28.0-34.0) 11/03/22 01:44 MCHC 30.5 g/dL (30.0-36.0) 11/03/22 01:44 RDW 14.1 % (12.1-15.1) 11/03/22 01:44 Plt Count 319 10^3/cmm (130-400) 11/03/22 01:44 MPV 10.1 fL (7.4-10.4) 11/03/22 01:44 Neut % (Auto) 86.5 % 11/03/22 01:44 Lymph % (Auto) 7.3 % 11/03/22 01:44 Boyd % (Auto) 4.6 % 11/03/22 01:44 Eos % (Auto) 0.0 % 11/03/22 01:44 Baso % (Auto) 0.3 % 11/03/22 01:44 Neut # (Auto) 13.72 10^3/uL (1.8-7.7) H 11/03/22 01:44 Lymph # (Auto) 1.2 10^3/uL (0.8-4.8) 11/03/22 01:44 Boyd # (Auto) 0.7 10^3/uL (0.2-0.9) 11/03/22 01:44 Eos # (Auto) 0.0 10^3/uL (0.0-0.8) 11/03/22 01:44 Baso # (Auto) 0.0 10^3/uL (0.0-0.1) 11/03/22 01:44 Nucleated RBC % (auto) 0 % 11/03/22 01:44 Nucleated RBCs # 0.0 /100WBC 11/03/22 01:44 Specimen Type Arterial 10/31/22 10:22 Sample Site Radial, right 10/31/22 10:22 ABG pH 7.38 (7.35-7.45) 10/31/22 10:22 ABG pCO2 47.5 mmHg (35-45) H 10/31/22 10:22 ABG pO2 67.4 mmHg (80.0-100.0) L 10/31/22 10:22 ABG HCO3 28.2 mmol/L (22-26) H 10/31/22 10:22 ABG O2 Saturation 95.1 10/31/22 10:22 ABG Base Excess 2.2 mmol/L (-2.0-2.0) H 10/31/22 10:22 Lambert Test Pos 10/31/22 10:22 A-a O2 Gradient 17.1 mmHg (5-10) H 10/31/22 10:22 Hematocrit 52.2 % (42-52) H 10/31/22 10:22 Hgb O2 Saturation 93.1 % (95-100) L 10/31/22 10:22 Carboxyhemoglobin 1.6 %THgb (0.4-20.1) 10/31/22 10:22 Methemoglobin 0.5 % (0.4-1.5) 10/31/22 10:22 Total Hemoglobin 17.0 g/dL (14-18) 10/31/22 10:22 Sodium 133.0 mmol/L (131-143) 10/31/22 10:22 Potassium 4.2 mmol/L (3.5-5.0) 10/31/22 10:22 Glucose 124.0 mg/dL (70-115) H 10/31/22 10:22 Ionized Calcium 1.2 mmol/L (1.1-1.4) 10/31/22 10:22 O2 Delivery Device Nc 10/31/22 10:22 O2 Liters/Min 4.0 % 10/31/22 10:22 FiO2 36.0 % 10/31/22 10:22 Insurance Office Supervisor ID Cak 10/31/22 10:22 Sodium 139 mmol/L (136-145) 11/03/22 01:44 Potassium 5.3 mmol/L (3.5-5.1) H 11/03/22 01:44 Chloride 99 mmol/L (98-107) 11/03/22 01:44 Carbon Dioxide 33 mmol/L (22-29) H 11/03/22 01:44 Anion Gap 12.3 (5-19) 11/03/22 01:44 BUN 22 mg/dL (6-20) H 11/03/22 01:44 Creatinine 0.7 mg/dL (0.7-1.2) 11/03/22 01:44 GFR Calculation 116.2 mL/min (90-130) 11/03/22 01:44 Glucose 190 mg/dL (65-115) H 11/03/22 01:44 POC Glucose 170 mg/dL (70-110) H 11/02/22 21:52 Calculated Osmolality 296 mOsm/kg (285-295) H 11/03/22 01:44 Lactic Acid 1.7 mmol/L (0.5-2.2) 10/31/22 09:50 Calcium 9.8 mg/dL (8.5-10.5) 11/03/22 01:44 Total Bilirubin 0.2 mg/dL (0.15-1.2) 11/01/22 05:20 AST 29 U/L (0-40) 11/01/22 05:20 ALT 28 U/L (0-41) 11/01/22 05:20 Alkaline Phosphatase 84 U/L (40-130) 11/01/22 05:20 Troponin T Baseline 20 ng/L (0-15) H 10/31/22 09:50 Troponin T 120 Minute 20.50 ng/L (0-15) H 10/31/22 11:55 Delta Troponin T 0.50 ABS# (0-10) 10/31/22 11:55 Troponin T Hi Sens 6Hr 13.24 ng/L (0-15) 10/31/22 15:35 Troponin T Hi Sens 6Hr Delta -6.76 ng/L (0-12) L 10/31/22 15:35 Total Protein 7.8 g/dL (6.6-8.7) 11/01/22 05:20 Albumin 3.3 g/dL (3.5-5.2) L 11/01/22 05:20 Globulin 4.5 g/dL (1.3-4.6) 11/01/22 05:20 Influenza Type A Ag Positive (Negative) H 10/31/22 10:49 Influenza Type B Ag Negative (Negative) 10/31/22 10:49 SARS-CoV-2 Ag (Rapid) negative (Negative) 10/31/22 10:49 Vitals Last Vital Signs Temp 98 F 11/03/22 15:22 Pulse 84 11/03/22 15:22 Resp 20 H 11/03/22 15:22 BP 118/76 11/03/22 15:22 Pulse Ox 94 11/03/22 15:22 O2 Del Method 11/03/22 12:29 O2 Flow Rate 3 11/03/22 13:18 Discharge Plan Discharge Patient Disposition: Home Condition: Stable Prescriptions: New cefdinir 300 mg capsule 300 mg PO BID 3 Days Qty: 6 0RF prednisone 10 mg tablet 10 mg PO DAILY Qty: 21 0RF Rx Instructions: 3 tab daily for 3 days, then 2 tab for 3 days, then 1 tab for 3 days, then 1/2 tab for 3 days. azithromycin 250 mg tablet 250 mg PO DAILY 3 Days Qty: 3 0RF amlodipine 10 mg tablet 10 mg PO DAILY Qty: 90 0RF Continued montelukast [Singulair] 10 mg tablet 10 mg PO DAILY Qty: 30 5RF furosemide [Lasix] 20 mg tablet 20 mg PO BID Qty: 60 5RF Flovent HFA 110 mcg/actuation HFA aerosol inhaler 2 puff inhalation BID Qty: 12 5RF clopidogrel [Plavix] 75 mg tablet 75 mg PO DAILY Qty: 30 5RF allopurinol 300 mg tablet 300 mg PO BID Qty: 60 5RF albuterol sulfate [ProAir HFA] 90 mcg/actuation HFA aerosol inhaler 2 puff INHALATION Q6H PRN (Reason: shortness of breath or wheezing) Qty: 18 5RF metoprolol succinate [Toprol XL] 50 mg tablet extended release 24 hr 50 mg PO DAILY Qty: 30 5RF nitroglycerin [Nitrostat] 0.4 mg tablet, sublingual 0.4 mg sublingual Q5M PRN (Reason: chest pain) Qty: 25 0RF Rx Instructions: do not exceed 3 doses per episode fenofibrate nanocrystallized [Tricor] 145 mg tablet 145 mg PO DAILY Qty: 30 2RF albuterol sulfate 2.5 mg /3 mL (0.083 %) solution for nebulization 2.5 mg INHALATION Q4H PRN (Reason: shortness of breath or wheezing) Qty: 75 5RF Discontinued valsartan [Diovan] 40 mg tablet 40 mg PO DAILY Qty: 30 5RF spironolactone 50 mg tablet 50 mg PO QAM Qty: 30 5RF Discharge Orders: Discharge Order (Routine); Ordered 11/03/22 Ordered By: Iain Azul Other Ambulatory Orders: DME: Oxygen (Order) Location: None Selected Ordered By: Iain Azul Referrals: Masha Mendez FNP-C [Primary Care Provider] - 11/07/22 9:20 am Discharge Diet: As Directed and Cardiac Discharge Activity: Oxygen as instructed Patient Instructions: Azithromycin (By mouth), Cefdinir (By mouth), Prednisolone (By mouth), How to Stop Smoking (GEN), Potassium Content of Foods List (GEN), Cigarette Smoking and Your Health (GEN), COPD (Chronic Obstructive Pulmonary Disease) (GEN), Hyperkalemia (GEN), Community Acquired Pneumonia (GEN), Hypertension (GEN) Activity Restrictions/Additional Instructions: Complete antibiotic course for pneumonia, complete steroid taper for COPD exacerbation. Follow-up with your primary doctor for reassessment after community-acquired pneumonia after influenza pneumonia, as well as COPD exacerbation. I do not see an order for ambulatory stress test. Discuss with your primary doctor once you recover from pneumonia and oxygen improved regarding referral for stress test. Please stop smoking as continued smoking will lead to progression of lung disease, as well as further risk of coronary artery disease, heart attack, stroke, cancer and other serious comorbidities. Please stop spironolactone, valsartan due to elevated potassium level. Avoid foods rich in potassium. Have your primary doctor recheck potassium level in office. Discharge Attestations Time Spent in Discharge Care*: greater than 30 min Quality Metrics Clinical Quality Measures [ No reported AMI, CVA or VTE this stay] Coding Level of Care Code Acute Chg FW DC note Diagnoses Community acquired pneumonia J18.9 Acute exacerbation of chronic obstructive airways disease J44.1 Influenza A J10.1 Essential (primary) hypertension I10
== END 2022-11-03 16:22 | disposition home or self-care (01) | DRG 194 ==
LOC: ER 13:25 → MEDSURG 14:22
PROVIDERS: Physician Assistant; Admitting Provider Internal Medicine; Emergency Provider Family Medicine; PCP Nurse Practitioner; Visit Provider Internal Medicine
DX: J10.00 Influenza due to other identified influenza virus with unspecified type of pneumonia (principal); J44.0 Chronic obstructive pulmonary disease with (acute) lower respiratory infection; J44.1 Chronic obstructive pulmonary disease with (acute) exacerbation; I10 Essential (primary) hypertension; E78.5 Hyperlipidemia, unspecified; E87.5 Hyperkalemia; Z79.02 Long term (current) use of antithrombotics/antiplatelets; Z79.51 Long term (current) use of inhaled steroids; F17.210 Nicotine dependence, cigarettes, uncomplicated; M10.9 Gout, unspecified; G47.33 Obstructive sleep apnea (adult) (pediatric)
CPT/HCPCS: 36415; 36416; 36600; 71045; 80048; 80051; 80053; 82330; 82805; 82962; 83605; 84484; 85025; 87040; 87070; 87205; 87426; 87641; 87804; 93005; 94640; 94760; 96365; 96367; 96372; 96375; 99285; J0456; J0696; J1650; J2930; J7030; J7050; J7626

== ENCOUNTER → 2022-11-07 09:36 | Outpatient (BNVA) | payer BC, MEDICAID, SELFPAY | PROVIDERS: PCP Nurse Practitioner; Visit Provider Nurse Practitioner | DX: J18.9 Pneumonia, unspecified organism (principal); J44.9 Chronic obstructive pulmonary disease, unspecified | CPT/HCPCS: 80053; 85025 ==

== ENCOUNTER 2022-12-04 10:05 | Outpatient (CLI) | payer OTHER, SELFPAY | END 2022-12-04 10:06 | disposition home or self-care (01) | LOC: RT 10:05 | PROVIDERS: PCP Nurse Practitioner; Visit Provider Dermatology | DX: J44.9 Chronic obstructive pulmonary disease, unspecified (principal); I50.9 Heart failure, unspecified | CPT/HCPCS: 94060; 94729; J7613 ==

== ENCOUNTER 2022-12-04 10:07 | Outpatient (CLI) | payer BC, MEDICAID, SELFPAY ==
--- NOTE | 2022-12-04 10:46 | XRR_ITS ---
PROCEDURE INFORMATION: Exam: XR Chest Exam date and time: 12/04/2022 11:16 AM Age: 57 years old Clinical indication: Condition or disease; Lung condition and disease; Patient HX: SOB, f/u for pneumonia left lung; Additional info: J18.9 - pneumonia, unspecified organism TECHNIQUE: Imaging protocol: Radiologic exam of the chest. Views: 2 views. COMPARISON: CR XR chest 1V portable [id number] 10/31/2022 9:53 AM FINDINGS: Lungs: Improving left lower lobe airspace opacity. Minimal bibasilar atelectasis. Pleural spaces: Unremarkable. No pleural effusion. No pneumothorax. Heart/Mediastinum: Stable cardiomediastinal silhouette. Bones/joints: Degenerative changes of the spine seen. XR/XR chest 2V* [id number] IMPRESSION: Improving left lower lobe pneumonia.
== END 2022-12-04 10:08 | disposition home or self-care (01) ==
LOC: RAD 10:10
PROVIDERS: PCP Nurse Practitioner; Visit Provider Nurse Practitioner
DX: J18.9 Pneumonia, unspecified organism (principal)
CPT/HCPCS: 71046

== ENCOUNTER → 2022-12-12 09:57 | Outpatient (BNVA) | payer BC, SELFPAY | PROVIDERS: PCP Nurse Practitioner; Visit Provider Nurse Practitioner | DX: J18.9 Pneumonia, unspecified organism (principal); M51.36 Other intervertebral disc degeneration, lumbar region; F41.8 Other specified anxiety disorders; J44.9 Chronic obstructive pulmonary disease, unspecified | CPT/HCPCS: 80053; 85025 ==

== ENCOUNTER → 2023-03-19 11:25 | Outpatient (BNVA) | payer BC, MEDICAID, SELFPAY | PROVIDERS: PCP Nurse Practitioner; Visit Provider Nurse Practitioner | DX: I10 Essential (primary) hypertension (principal) | CPT/HCPCS: 80053; 80061; 84443 ==

== ENCOUNTER → 2023-09-10 11:50 | Outpatient (BNVA) | payer BC, MEDICAID, SELFPAY | PROVIDERS: PCP Nurse Practitioner; Visit Provider Nurse Practitioner | DX: E55.9 Vitamin D deficiency, unspecified (principal); I10 Essential (primary) hypertension; Z12.5 Encounter for screening for malignant neoplasm of prostate | CPT/HCPCS: 80053; 80061; 82306; 82607; 84443; 85025; 85651; 86140; 86160; 86162; 86235; 86255; 86376; G0103 ==

== ENCOUNTER 2023-10-07 08:34 | Oncology outpatient (recurring) (ONCR) | payer MEDICARE, SELFPAY ==
[2023-10-07 10:02] LABS: Basophils % 0.5 %; Eosinophils # 0.2 10^3/uL (0.0-0.8); Eosinophils % 2.2 %; Hematocrit 55.6 % (37-53); Lymphocytes # 1.7 10^3/uL (0.8-4.8); Lymphocytes % 20.2 %; Mean Corpuscular HGB Conc 33.5 g/dL (30-55); Mean Corpuscular Hemoglobin 33.8 pg (27-33); Mean Corpuscular Volume 101.1 fl (82-101); Mean Platelet Volume 9.6 fL (7.4-10.4); Monocytes # 0.6 10^3/uL (0.2-0.9); Monocytes % 7.1 %; Neutrophils % 69.8 %; Nucleated Red Blood Cells % 0 %; Platelet Count 228 10^3/cmm (157-399); Red Cell Distribution Width 13.8 % (12.1-15.1)
[2023-10-07 10:11] LABS: Alanine Aminotransferase 28 U/L (0-41); Albumin Level 4.5 g/dL (3.5-5.2); Alkaline Phosphatase 74 U/L (40-130); Aspartate Amino Transferase 22 U/L (0-40); Blood Urea Nitrogen 16 mg/dL (6-20); Calcium 9.3 mg/dL (8.5-10.5); Carbon Dioxide 24 mmol/L (22-29); Chloride 104 mmol/L (98-107); Creatinine Clr Calc Pharmacy 152.4995; Glomerular Filtration Rate 99.3 mL/min (90-130); Glucose 118 mg/dL (65-115); Osmolality Calculated 288 mOsm/kg (285-295); Sodium 138 mmol/L (136-145); Total Bilirubin 0.4 mg/dL (0.15-1.2); Total Protein 7.5 g/dL (6.6-8.7)
[2023-10-07 10:12] LABS: Anion Gap 13.9 (5-19); Lactate Dehydrogenase 250 U/L (135-225); Potassium 3.9 mmol/L (3.5-5.1)
[2023-10-07 11:24] LABS: Vitamin B12 342 pg/mL (232-1245)
[2023-10-07 11:46] LABS: Folate Level 14.4 ng/mL (4.5-32.2)
[2023-10-12 07:18] LABS: Methylmalonic Acid 183 nmol/L (87-318)
[2023-10-12 07:44] LABS: Erythropoietin 10.2 mIU/mL (2.6-18.5)
[2023-10-28 13:49] LABS: CALR Exon 9 Mutation NOT DETECTED (NOT DETECTED); CSF3R Exon 14/17 Mutation NOT DETECTED (NOT DETECTED); JAK2 Exon 12 Mutation NOT DETECTED (NOT DETECTED); JAK2 V617 Block Specimen ID NG; JAK2 V617 Clinical Indication NG; JAK2 V617 Mutation NOT DETECTED (NOT DETECTED); JAK2 V617 Specimen Source BLOOD; MPL Exon 12 Mutation NOT DETECTED (NOT DETECTED)
== END 2023-10-29 23:59 | disposition home or self-care (01) ==
PROVIDERS: Internal Medicine; PCP Nurse Practitioner; Visit Provider Internal Medicine Medical Oncology
DX: D75.1 Secondary polycythemia (principal); F17.210 Nicotine dependence, cigarettes, uncomplicated; Z12.11 Encounter for screening for malignant neoplasm of colon; J44.9 Chronic obstructive pulmonary disease, unspecified; Z99.81 Dependence on supplemental oxygen
CPT/HCPCS: 36415; 80053; 81270; 81279; 81339; 81479; 82607; 82668; 82746; 83615; 83921; 85025; 99204

== ENCOUNTER → 2023-10-20 08:14 | Outpatient (BNVA) | payer MEDICARE, SELFPAY | PROVIDERS: PCP Nurse Practitioner; Referring Provider Internal Medicine; Visit Provider Surgery | DX: Z12.11 Encounter for screening for malignant neoplasm of colon (principal); K42.9 Umbilical hernia without obstruction or gangrene | CPT/HCPCS: 99204 ==

== ENCOUNTER 2023-10-26 09:30 | Day surgery (SDC) | payer MEDICARE, SELFPAY ==
[2023-10-26] VITALS (15 sets, daily range): BP systolic 142–160; BP diastolic 77–91; PULSE 80–96; RESP 16–20; TEMP 36.6–37.2; O2SAT 91–97; BMI 50.1
[2023-10-26] MEDS: ipratropium-albuterol 3 mL Neb INHALATION (10:38)
[2023-10-26] MEDS: sodium chloride 0.9% 1,000 ML 30 ML IV (10:42)
--- NOTE | 2023-10-26 10:43 | ANES.PREANE2 ---
Pre-Anesthetic Assessment Height/Weight: Height 1.78 m Weight 158.304 kg Pulse Resp Pulse Ox O2 Del Method 82 18 93 Room Air 10/26/23 10:35 10/26/23 10:31 10/26/23 10:31 10/26/23 10:31 Operation Date: 10/26/23 11:15 Proposed Procedures p 05682 lap umbilical hernia repair with mesh K42.9(Not Applicable) - Walter Burnett DO Familial anesthetic complications: None Was Beta Yair taken within 24 hours: Yes Was Clonidine taken within 24 hours: N/A Last intake: Intake Last Liquid Date 10/25/23 Last Liquid Time 23:55 Last Solid Date 10/25/23 Last Solid Time 20:00 Social Tobacco and No alcohol Exam alert, oriented x 3, clear to auscultation bilaterally and regular rate & rhythm Airway Mallampati: Class IV Dentition: full Comments: Comments: large neck Pulmonary Chronic Obstructive Pulmonary Disease (3 L NC at night), Exertional Dyspnea and Sleep Apnea CV/HEM Hypertension Metabolic Hyperlipidemia Anesthetic Plan ASA status: 3 Anesthesia: General Risk of > 500 ml blood loss (7ml/kg in children): No Medications/Allergies Home Medications Medication Instructions Recorded Confirmed Last Taken Type nitroglycerin 0.4 mg sublingual 0.4 mg sublingual Q5M PRN chest 10/15/21 10/21/23 Unknown Rx tablet (Nitrostat) pain #25 tabs albuterol sulfate 2.5 mg/3 mL 2.5 mg (3 mL) inhalation Q4H PRN 10/30/22 10/21/23 Unknown Rx (0.083 %) solution for nebulization shortness of breath or wheezing #75 mL nystatin 100,000 unit/mL oral 5 ml PO TID #480 mL 11/11/22 10/21/23 Unknown Rx suspension albuterol sulfate 90 mcg/actuation 2 puff inhalation Q6H PRN 09/14/23 10/26/23 10/26/23 Rx aerosol inhaler (ProAir HFA) shortness of breath or wheezing #18 grams allopurinol 300 mg tablet 300 mg PO BID #60 tabs 09/14/23 10/26/23 10/25/23 Rx amlodipine 10 mg tablet 10 mg PO DAILY #30 tabs 09/14/23 10/26/23 10/25/23 Rx bupropion HCl 150 mg tablet,12 hr 150 mg PO Q12H #60 tabs 09/14/23 10/26/23 10/25/23 Rx sustained-release (Wellbutrin SR) clopidogrel 75 mg tablet (Plavix) 75 mg PO DAILY #30 tabs 09/14/23 10/26/23 10/21/23 Rx fenofibrate nanocrystallized 145 145 mg PO DAILY #30 tabs 09/14/23 10/26/23 10/25/23 Rx mg tablet (Tricor) fluticasone 500 mcg-salmeterol 50 1 inh inhalation Q12H #60 ea 09/14/23 10/21/23 Unknown Rx mcg/dose blistr powdr for inhalation (Advair Diskus) fluticasone propionate 50 2 spray intranasal DAILY #16 grams 09/14/23 10/21/23 Unknown Rx mcg/actuation nasal spray,suspension (Flonase Allergy Relief) furosemide 20 mg tablet (Lasix) See Rx Instructions PO .COMPLEX 09/14/23 10/26/23 10/25/23 Rx #90 tabs metoprolol succinate 50 mg 50 mg PO DAILY #30 tabs 09/14/23 10/26/23 10/25/23 Rx tablet,extended release 24 hr (Toprol XL) montelukast 10 mg tablet 10 mg PO DAILY #30 tabs 09/14/23 10/21/23 Unknown Rx (Singulair) tiotropium bromide 18 mcg capsule 1 cap inhalation DAILY #30 09/14/23 10/21/23 Unknown Rx with inhalation device (Spiriva inhalations with HandiHaler) zonisamide 100 mg capsule 100 mg PO BID #60 caps 09/14/23 10/21/23 Unknown Rx (Zonegran) CPAP machine and supplies #1 ea 10/07/23 10/20/23 Unknown Rx varenicline 0.5 mg (11)-1 mg (42) See Rx Instructions PO PER PKG DIR 10/07/23 10/21/23 Unknown Rx tablets in a dose pack (Chantix #53 ea Starting Month Box) cholecalciferol (vitamin D3) 25 25 mcg PO DAILY 10/21/23 10/26/23 10/25/23 History mcg (1,000 unit) capsule (Vitamin D3) vitamin B12 2,500 mcg-folic acid 1 tab PO DAILY 10/21/23 10/21/23 Unknown History 400 mcg disintegrating tablet Allergies Allergy/AdvReac Type Severity Reaction Status Date / Time No Known Allergies Allergy Verified 10/21/23 13:12 [facility] Anesthesia Medical History Anxiety associated with depression Cigarette smoker COPD (chronic obstructive pulmonary disease) Essential (primary) hypertension Gout Hyperlipidemia Obstructive sleep apnea Patient reports he is intolerant of mask Seasonal allergic rhinitis due to pollen Surgical History History of hand surgery History of open reduction and internal fixation (ORIF) procedure Right tib/fib Family History Other Diabetes Heart disease Social History Smoking and tobacco/nicotine status: current every day tobacco/nicotine user Second hand smoke exposure: No Alcohol intake: current Alcohol intake frequency: holidays/special occasions only Substance/Drug Use: never Adopted: No Caregiver/support person: No Lives independently: Yes Household members: spouse Housing: House Marital status: Number of children: 2 service: No Current occupational status: employed Do you think of yourself as: Straight/Heterosexual Current gender identity: Male Data Anesthesia Cardiac Studies: No Data to Display
--- NOTE | 2023-10-26 11:24 | W.PM.OPSUD ---
Surgery/Procedure H&P Update DATE OF PROCEDURE: October 26, 2023 DATE H&P PERFORMED: 10/20/23 H&P UPDATE INFORMATION: I have reviewed H&P completed within last 30 days, I have examined patient prior to procedure and No changes to prior documentation PLANNED PROCEDURE: Operation Date: 10/26/23 11:15 Proposed Procedures p 88357 lap umbilical hernia repair with mesh K42.9(Not Applicable) - Walter Burnett, DO
[2023-10-26] MEDS: ceFAZolin 3,000 MG in sodium chloride 0.9% (plus) 100 ML 200 MG IV (13:04)
--- NOTE | 2023-10-26 13:45 | PM.OP ---
Operative Report Date of procedure: October 26, 2023 Pre-op diagnosis: Umbilical hernia Post-op diagnosis: Umbilical hernia and second ventral hernia Procedure done: Laparoscopic repair of umbilical and ventral hernias with mesh Implants: 6 inch round Ventralight mesh Specimens removed/disposition: Hernia sac Surgeon: Walter Burnett DO Anesthesia: General and Local Estimated blood loss (mL): 5 Complications: None apparent Brief History: This very pleasant 58-year-old gentleman who presented to my office with an umbilical hernia. He desired repair. The risk and benefits were explained and documented. Procedure: Patient was wheeled into the operative room and placed on the OR table in a supine position. Abdomen was inspected prepped and draped in usual sterile fashion. Time-out was performed and all present were in agreement. A 15 blade scalp was used to make a 5 millimeter incision left upper quadrant. A Veress needle was placed into the incision and intra-abdominal insufflation was brought to 15 millimeters of mercury. A 12 millimeter trocar was placed into the left lower quadrant. A 2 cm defect was seen at the umbilicus containing omental fat. This was reduced. There was a second hernia 3 cm cephalad to the umbilical hernia that measured 1 cm in greatest diameter and contained omentum as well. Omentum was reduced from both hernias. The energy but device was then used to cut out the hernia sac. A 6 inch ventral light mesh was placed into the abdomen and brought up through the center of the 2 hernias using an the Yvon-Elton. The mesh was then tacked in place in a double crown fashion. The skeleton of the mesh was removed via the left lower quadrant. The hernia sac was then removed from the abdomen via the left lower quadrant. The left lower quadrant port site was closed with an 0 Vicryl suture in a Yvon-Elton in a [id number] fashion. Incisions were closed with 4 O Vicryl in a subcuticular interrupted fashion. Skin glue was applied. A dressing that included cotton balls and a Tegaderm was placed over the umbilicus. Patient tolerated the procedure well.
[2023-10-26] MEDS: lidocaine-epi 2% 20 mL INJ 4 ML INJECTION (13:48)
[2023-10-26] MEDS: fentaNYL 50 mcg/mL INJ 2mL IVP (14:30)
[2023-10-26] MEDS: HYDROcodone-acetaminophen 10-325 mg Tablet 1 TAB PO (15:18)
--- NOTE | 2023-10-26 16:15 | ANE.PACU2 ---
Inpatient post-anesthesia follow up: Airway intact: Yes Vital signs: Temperature 97.8 F Pulse Rate 90 Respiratory Rate 17 Blood Pressure 160/89 Pulse Oximetry 92 Oxygen Delivery Me thod Room Air Oxygen Flow Rate 2.0 Fraction of Inspir ed Oxygen Hydration adequate: Yes Nausea and vomiting: No Pain level: 1 Mental status: Baseline
== END 2023-10-26 16:15 | disposition home or self-care (01) ==
PROVIDERS: PCP Nurse Practitioner; Visit Provider Surgery
PROC: 0WQF4ZZ Repair Abdominal Wall, Percutaneous Endoscopic Approach (ICD-10-PCS; CPT 49593; principal; 2023-10-26 11:15)
DX: K42.9 Umbilical hernia without obstruction or gangrene (principal); K43.9 Ventral hernia without obstruction or gangrene; J44.9 Chronic obstructive pulmonary disease, unspecified; Z99.81 Dependence on supplemental oxygen; F17.210 Nicotine dependence, cigarettes, uncomplicated; I10 Essential (primary) hypertension; E78.5 Hyperlipidemia, unspecified; G47.33 Obstructive sleep apnea (adult) (pediatric)
CPT/HCPCS: 49593; 88302; 94640; J0330; J0690; J1100; J2405; J2704; J2710; J3010; J3490; J7030

== ENCOUNTER 2023-10-29 09:12 | Outpatient (CLI) | payer MEDICARE, SELFPAY ==
--- NOTE | 2023-10-29 09:30 | CT_ITS ---
WS: [id number] LDCT LUNG CANCER SCREENING TECHNIQUE: Noncontrast CT of the chest with coronal and sagittal reformatted images. CLINICAL INFORMATION: lung screening COMPARISON: None. DLP: 223.39 mGy.cm DIvol: Mean CTDIvol: 5.50 (mGy) All CT scans at [facility] use at least one of these dose optimization techniques: automat ed exposure control; mA and/or kV adjustment per patient size (includes targeted exams where dose is matched to clinical indication); or iterative reconstruction. FINDINGS: Numerous small subcentimeter micronodules scattered throughout both lungs more prominent in the RIGHT upper lobe. No suspicious pulmonary parenchymal opacities. Normal caliber thoracic aorta. Aortic calcification. No mediastinal or hilar lymphadenopathy. No axil sheila lymphadenopathy. Normal GE junction. Adrenal glands are normal. Mild thoracic curve and kyphosis. Hypertrophic changes thoracic spine. Mild chronic emphysematous changes. No acute pulmonary infiltrates. Slight subsegmental atelectasis i n the lung bases. IMPRESSION: CT/CT lung screening 79508 LUNG-RADS: 2-Benign Appearance or Behavior FOLLOW UP: 12 Month: Continue annual screening with LDCT
== END 2023-10-29 09:13 | disposition home or self-care (01) ==
LOC: RAD 09:12
PROVIDERS: PCP Nurse Practitioner; Visit Provider Nurse Practitioner Family
DX: Z12.2 Encounter for screening for malignant neoplasm of respiratory organs (principal); F17.210 Nicotine dependence, cigarettes, uncomplicated
CPT/HCPCS: 71271

== ENCOUNTER → 2023-11-10 09:46 | Outpatient (BNVA) | payer MEDICARE, SELFPAY | PROVIDERS: PCP Nurse Practitioner; Visit Provider Surgery | DX: Z12.11 Encounter for screening for malignant neoplasm of colon (principal); K42.9 Umbilical hernia without obstruction or gangrene; Z98.890 Other specified postprocedural states | CPT/HCPCS: 99024 ==

== ENCOUNTER 2024-01-28 08:14 | Outpatient (CLI) | payer MEDICARE, MEDICAID, SELFPAY ==
--- NOTE | 2024-01-28 08:20 | CT_ITS ---
WS: [id number] CT NECK WITH CONTRAST HISTORY: CHRONIC LARYNGITIS/OTHER DZ OF VOCAL CORDS/PAIN IN THROAT TECHNIQUE: Contiguous 2 mm axial images are performed through the neck with intravenous contrast. Sag ittal and coronal reformats are also submitted. All CT scans at [facility] use at least one o f these dose optimization techniques: automated exposure control; mA and/or kV adjustment per patient size (includes targeted exams where dose is matched to clinical indication); or iterative reconstruc tion. CONTRAST: CONTRAST: Omnipaque 350; 100 mL IV. DLP: 262.24 mGy.cm COMPARISON: None available. Nasopharynx, oropharynx, hypopharynx and larynx are unremarkable. No soft tissue masses or abnormal e nhancement. Torus tubarius and fossa of Rosenmuller and parapharyngeal fat are normal. No significant lymphadenopathy is identified. Thyroid gland and salivary glands are normally enhancing with no masses. No osseous abnormalities. Visualized portions of the skull base demonstrate no abnormalities. Orbits and globes are within norm al limits. No soft tissue masses. Visualized paranasal sinuses and mastoid air cells are normal. Lung apices are clear. IMPRESSION: 1. No neck mass or adenopathy. 2. No subglottic airway obstruction. Normal vocal cords.
[2024-01-28] MEDS: iohexol 350 mg/mL 500 mL Btl (per mL) IV (08:50)
== END 2024-01-28 08:15 | disposition home or self-care (01) ==
LOC: RAD 08:15
PROVIDERS: PCP Nurse Practitioner; Visit Provider Otolaryngology
DX: J37.0 Chronic laryngitis (principal); J38.3 Other diseases of vocal cords; R07.0 Pain in throat
CPT/HCPCS: 70491; Q9967

== ENCOUNTER 2024-02-09 12:00 | Oncology outpatient (recurring) (ONCR) | payer MEDICARE, MEDICAID, SELFPAY ==
[2024-02-09 13:14] LABS: Basophils % 0.4 %; Eosinophils # 0.1 10^3/uL (0.0-0.8); Eosinophils % 1.2 %; Hematocrit 55.8 % (37-53); Lymphocytes # 1.4 10^3/uL (0.8-4.8); Lymphocytes % 18.8 %; Mean Corpuscular HGB Conc 32.8 g/dL (30-55); Mean Corpuscular Hemoglobin 33.4 pg (27-33); Mean Corpuscular Volume 101.8 fl (82-101); Mean Platelet Volume 10.1 fL (7.4-10.4); Monocytes # 0.7 10^3/uL (0.2-0.9); Monocytes % 9.1 %; Neutrophils % 70.2 %; Nucleated Red Blood Cells % 0 %; Platelet Count 246 10^3/cmm (157-399); Red Blood Count 5.48 10^6/uL (3.85-5.65); White Blood Count 7.27 10^3/uL (3.29-11.43)
[2024-02-09 13:22] LABS: Alanine Aminotransferase 30 U/L (0-41); Alkaline Phosphatase 88 U/L (40-130); Aspartate Amino Transferase 20 U/L (0-40); Blood Urea Nitrogen 14 mg/dL (6-20); Carbon Dioxide 28 mmol/L (22-29); Chloride 100 mmol/L (98-107); Glomerular Filtration Rate 76.5 mL/min (90-130); Glucose 120 mg/dL (65-115); Osmolality Calculated 288 mOsm/kg (285-295); Sodium 138 mmol/L (136-145); Total Bilirubin 0.4 mg/dL (0.15-1.2)
[2024-02-09 13:23] LABS: Anion Gap 14.2 (5-19); Potassium 4.2 mmol/L (3.5-5.1)
[2024-02-09 14:22] VITALS: BP 129/66; PULSE 77; RESP 20; TEMP 36.6; O2SAT 92
[2024-02-09 15:22] LABS: Vitamin B12 857 pg/mL (232-1245)
[2024-02-10 15:32] LABS: Estmated Average Glucose 111; Hemoglobin A1C 5.5 % (4.0-6.0)
== END 2024-02-28 23:59 | disposition home or self-care (01) ==
PROVIDERS: Internal Medicine; PCP Nurse Practitioner; Visit Provider Internal Medicine Medical Oncology
DX: D75.1 Secondary polycythemia (principal); F17.210 Nicotine dependence, cigarettes, uncomplicated; Z12.11 Encounter for screening for malignant neoplasm of colon; J44.9 Chronic obstructive pulmonary disease, unspecified; Z99.81 Dependence on supplemental oxygen; R73.9 Hyperglycemia, unspecified
CPT/HCPCS: 36415; 80053; 82607; 83036; 85025; 99195; 99214

== ENCOUNTER → 2024-04-07 15:03 | Outpatient (BNVA) | payer MEDICARE, MEDICAID, SELFPAY | PROVIDERS: PCP Nurse Practitioner; Visit Provider Internal Medicine | DX: Z01.818 Encounter for other preprocedural examination (principal); I10 Essential (primary) hypertension; R06.00 Dyspnea, unspecified; F17.210 Nicotine dependence, cigarettes, uncomplicated; I73.9 Peripheral vascular disease, unspecified; R94.31 Abnormal electrocardiogram [ECG] [EKG] | CPT/HCPCS: 93005; 99214 ==

== ENCOUNTER 2024-04-19 09:27 | Outpatient (CLI) | payer MEDICARE, MEDICAID, SELFPAY ==
[2024-04-19 09:36] VITALS: BMI 49.5
--- NOTE | 2024-04-19 09:44 | ECG_ITS ---
[facility] Test Date: 2024-04-19 Pat Name: Jason Thurman Department: Room: Gender: Male [employer] Shop [employer]: : 1965 Requested By: Job Fang Order Number: [id number] Conrado MD: Job Fang M.D. Interpretive Statements NAME OF STUDY: LEXISCAN SESTAMIBI STRESS TEST INDICATION: [Chest Pain; Shortness of Breath] Procedure: At the baseline, the blood pressure was 131/87 mmHg with a heart rate of 74 bpm. The electrocardiogram showed normal sinus rhythm, normal axis with normal ST and T's. The Lexiscan was infused over a period of 20 seconds. A total of 0.4 mg of Lexiscan was infused. The stress phase was continued for a total of 5 minutes. Heart rate was at the end of stress phase was 71 bpm and a blood pressure of 139/84 mmHg. The EKG at the peak infusion revealed normal sinus rhythm with no significant ST-T wave changes. Sestamibi was injected 20 seconds after the Lexiscan infusion. Blood pressure at the end of recovery phase was 128/80 mmHg with a heart rate of 74 bpm. Conclusion: 1. Normal EKG response to Lexiscan infusion 2. No Lexiscan induced chest pain or cardiac arrhythmia. 3. Normal blood pressure and heart rate response. 4. Sestamibi/sestamibi perfusion scan pending; see separate report. Electronically Signed On 04-25-2024 16:27:42 CDT by Job Fang M.D. [id number]
--- NOTE | 2024-04-19 09:44 | NMCV_ITS ---
NM deangelo perf SPECT r/s* [id number] Jason Thurman Age: 59 Gender: M : 1965 Exam Date: 04/19/2024 09:44 Ordering Phys: Job Fang M.D ([email or web address]) Technologist: REHAN Erazo Exam Location: [facility] Indications: CHEST PAIN STRESS TEST Please see separate stress test report in [facility] for full findings IMAGE PROTOCOL Rest/Stress 1 Lexiscan Day Radiopharmaceutical Dose (mCi) Administration Site Administered by Rest: Tc-99m 10.6 IV REHAN Stover Sestamibi Stress:Tc-99m 33.0 IV REHAN Stover Sestamibi Rest: 19-Apr-2024 60 Discovery 630 Stress: 19-Apr-2024 30 Discovery 630 0.4mg Lexiscan. Images obtained in supine and prone position. SPECT RESULTS Technical Quality: Excellent Raw Data Analysis: Normal Image Corrections: No attenuation or motion correction applied Summed Stress Score: 5 Summed Rest Score: 6 Summed Difference Score: 0 PERFUSION FINDINGS There is small sized area of fixed perfusion defect noted in the apical, apical inferior and mid inferior king. This is consistent with small areas of prior infarcts seen in LAD and RCA territories. FUNCTIONAL RESULTS (calculated via Gated SPECT) Stress Image LV EF (%): 60 Stress EDV (mL):147 TID: 1.06 Stress ESV (mL):59 FUNCTIONAL FINDINGS: There is normal left ventricular systolic function. IMPRESSIONS 1. Small areas of prior infarct seen in LAD and RCA territories. No evidence of ischemia 2. LV systolic function is normal Job Fang MD (Electronically Signed) Final Date: 22 Apr 2024 13:45 S
[2024-04-19] MEDS: regadenoson 0.4 Mg/5 ml Syringe 0.400000000000000022 MG IVP (11:10)
[2024-04-19 11:25] VITALS: BP 123/84; PULSE 64
== END 2024-04-19 09:28 | disposition home or self-care (01) ==
PROVIDERS: PCP Nurse Practitioner; Visit Provider Internal Medicine
DX: R07.9 Chest pain, unspecified (principal); R06.00 Dyspnea, unspecified; I25.2 Old myocardial infarction
CPT/HCPCS: 36415; 78452; 93017; 96374; A9500; J2785

== ENCOUNTER 2024-04-20 20:00 | Outpatient (CLI) | payer MEDICARE, MEDICAID, SELFPAY | END 2024-04-20 20:01 | disposition home or self-care (01) | LOC: SLEEP 04-21 04:53 | PROVIDERS: PCP Nurse Practitioner; Visit Provider Internal Medicine | DX: G47.33 Obstructive sleep apnea (adult) (pediatric) (principal); G47.36 Sleep related hypoventilation in conditions classified elsewhere | CPT/HCPCS: 95810 ==

== ENCOUNTER 2024-04-27 13:52 | Oncology outpatient (recurring) (ONCR) | payer MEDICARE, MEDICAID, SELFPAY | END 2024-04-29 23:59 | disposition home or self-care (01) | LOC: RAD 13:52 → ONCMED 18:49 | PROVIDERS: PCP Nurse Practitioner; Visit Provider Internal Medicine | DX: D75.1 Secondary polycythemia (principal); F17.210 Nicotine dependence, cigarettes, uncomplicated; Z12.11 Encounter for screening for malignant neoplasm of colon; J44.9 Chronic obstructive pulmonary disease, unspecified; Z99.81 Dependence on supplemental oxygen; R07.9 Chest pain, unspecified; R06.02 Shortness of breath | CPT/HCPCS: 93306 ==

== ENCOUNTER 2024-05-18 15:00 | Oncology outpatient (recurring) (ONCR) | payer MEDICARE, MEDICAID, SELFPAY ==
[2024-05-11 13:01] LABS: Basophils # 0.1 10^3/uL (0.0-0.1); Basophils % 0.7 %; Eosinophils # 0.1 10^3/uL (0.0-0.8); Eosinophils % 1.7 %; Lymphocytes # 1.8 10^3/uL (0.8-4.8); Lymphocytes % 25.1 %; Mean Corpuscular HGB Conc 33.1 g/dL (30-55); Mean Corpuscular Hemoglobin 33.2 pg (27-33); Mean Corpuscular Volume 100.2 fl (82-101); Mean Platelet Volume 9.8 fL (7.4-10.4); Monocytes # 0.7 10^3/uL (0.2-0.9); Monocytes % 9.2 %; Neutrophils # 4.58 10^3/uL (1.8-7.7); Nucleated Red Blood Cells % 0 %; Platelet Count 222 10^3/cmm (157-399); Red Blood Count 5.49 10^6/uL (3.85-5.65); Red Cell Distribution Width 13.6 % (12.1-15.1); White Blood Count 7.26 10^3/uL (3.29-11.43)
[2024-05-11 13:22] LABS: Alanine Aminotransferase 28 U/L (0-41); Albumin Level 4.2 g/dL (3.5-5.2); Alkaline Phosphatase 74 U/L (40-130); Blood Urea Nitrogen 13 mg/dL (6-20); Calcium 9.5 mg/dL (8.5-10.5); Carbon Dioxide 26 mmol/L (22-29); Chloride 100 mmol/L (98-107); Globulin 2.9 g/dL (1.3-4.6); Glomerular Filtration Rate 98.9 mL/min (90-130); Glucose 127 mg/dL (65-115); Osmolality Calculated 288 mOsm/kg (285-295); Sodium 138 mmol/L (136-145); Total Bilirubin 0.3 mg/dL (0.15-1.2); Total Protein 7.1 g/dL (6.6-8.7)
[2024-05-11 13:25] LABS: Anion Gap 15.9 (5-19); Aspartate Amino Transferase 24 U/L (0-40); Potassium 3.9 mmol/L (3.5-5.1)
[2024-05-11 14:58] VITALS: BP 124/68; PULSE 75; O2SAT 95
[2024-05-18 15:24] LABS: Basophils % 0.5 %; Eosinophils # 0.1 10^3/uL (0.0-0.8); Eosinophils % 1.9 %; Hematocrit 50.5 % (37-53); Lymphocytes % 27.3 %; Mean Corpuscular HGB Conc 33.3 g/dL (30-55); Mean Corpuscular Volume 99.2 fl (82-101); Mean Platelet Volume 9.7 fL (7.4-10.4); Monocytes # 0.7 10^3/uL (0.2-0.9); Monocytes % 8.8 %; Neutrophils # 4.52 10^3/uL (1.8-7.7); Neutrophils % 61.4 %; Nucleated Red Blood Cells % 0 %; Platelet Count 253 10^3/cmm (157-399); Red Blood Count 5.09 10^6/uL (3.85-5.65); Red Cell Distribution Width 13.3 % (12.1-15.1); White Blood Count 7.37 10^3/uL (3.29-11.43)
[2024-05-18 15:41] VITALS: BP 142/69; PULSE 71; RESP 20; TEMP 37.1; O2SAT 92
[2024-05-18 15:53] VITALS: BP 131/71; PULSE 69; RESP 18; TEMP 37; O2SAT 94
== END 2024-05-29 23:59 | disposition home or self-care (01) ==
PROVIDERS: Internal Medicine; PCP Nurse Practitioner; Visit Provider Internal Medicine
DX: D75.1 Secondary polycythemia; E83.119 Hemochromatosis, unspecified; Z53.9 Procedure and treatment not carried out, unspecified reason
CPT/HCPCS: 36415; 80053; 85025; 99195; 99213

== ENCOUNTER 2024-06-14 13:05 | Outpatient (CLI) | payer MEDICARE, MEDICAID, SELFPAY ==
--- NOTE | 2024-06-14 13:09 | PETR_ITS ---
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 Then, PET images were obtained. Attenuation corrected images were constructed using the CT scan. Fused images of PET and CT were reviewed. The standardized uptake values (SUV) reported below are maximum values within a region of interest, expressed in gm/ml. Exam includes orbital meatal line to mid-thigh. Radiopharmaceutical: 13.55 mCi F-18 FDG (Fluorodeoxyglucose), IV. Time of imaging post radiopharmaceutical administration: 46 minutes Injection site: Right antecubital COMPARISON: 1. CT neck w con* [id number] 01/28/2024 8:[address] lung screening [id number] 10/29/2023 9:57 AM FINDINGS: Brain: Visualized brain has normal physiologic uptake. Pharynx: No abnormal uptake. Larynx: Mild asymmetric right laryngeal thickening extending to the anterior midline with FDG uptake showing SUV max of 4.5. Lungs, pleura and trachea: No abnormal uptake. Mild upper lung predominant emphysematous change. Mild dependent atelectasis. Right upper lobe calcified granuloma. Heart: Normal physiologic uptake. Mediastinal space: No abnormal uptake. Liver: No abnormal uptake. Gallbladder and biliary ducts: No abnormal uptake. Pancreas: No abnormal uptake. Spleen: No abnormal uptake. Adrenal glands: No abnormal uptake. Kidneys and ureters: Normal physiologic uptake. Stomach and bowel: No abnormal uptake. Vasculature: No abnormal uptake. Mild systemic atherosclerotic calcification without aortic aneurysm. Lymph nodes: No abnormal uptake. No lymphadenopathy in the head, neck, chest, abdomen, pelvis, and extremities. Calcified mediastinal lymph nodes in keeping with sequela of old granulomatous disease. Skeleton: No abnormal uptake in the visualized axial and appendicular skeleton. Degenerative changes along the imaged axial and proximal appendicular skeletal system. Bilateral superior femoral head serpentine sclerosis. Soft tissues: No abnormal uptake in the visualized head, neck, chest, abdomen, pelvis, and extremities. Small fat containing right inguinal hernia. PET/PET skull to thigh INIT [id number] IMPRESSION: 1. Mild asymmetric right laryngeal thickening with moderate FDG uptake likely corresponding to reported laryngeal malignancy. No evidence of metastatic disease. 2. Bilateral femoral head osteonecrosis.
== END 2024-06-14 13:06 | disposition home or self-care (01) ==
LOC: RAD 13:06
PROVIDERS: PCP Nurse Practitioner; Visit Provider Specialist
DX: C32.8 Malignant neoplasm of overlapping sites of larynx (principal); J43.9 Emphysema, unspecified; J84.10 Pulmonary fibrosis, unspecified; I70.91 Generalized atherosclerosis; I89.8 Other specified noninfective disorders of lymphatic vessels and lymph nodes; M87.9 Osteonecrosis, unspecified
CPT/HCPCS: 78815; A9552

== ENCOUNTER 2024-06-29 08:15 | Oncology outpatient (recurring) (ONCR) | payer MEDICARE, MEDICAID, SELFPAY ==
[2024-06-01 14:11] LABS: Basophils # 0.1 10^3/uL (0.0-0.1); Basophils % 0.6 %; Eosinophils # 0.1 10^3/uL (0.0-0.8); Eosinophils % 1.5 %; Hematocrit 49.6 % (37-53); Lymphocytes # 1.8 10^3/uL (0.8-4.8); Lymphocytes % 21.7 %; Mean Corpuscular HGB Conc 33.3 g/dL (30-55); Mean Corpuscular Hemoglobin 33.2 pg (27-33); Mean Corpuscular Volume 99.8 fl (82-101); Mean Platelet Volume 9.7 fL (7.4-10.4); Monocytes # 0.7 10^3/uL (0.2-0.9); Monocytes % 8.5 %; Neutrophils # 5.69 10^3/uL (1.8-7.7); Neutrophils % 67.3 %; Nucleated Red Blood Cells % 0 %; Platelet Count 244 10^3/cmm (157-399); Red Blood Count 4.97 10^6/uL (3.85-5.65); Red Cell Distribution Width 13.6 % (12.1-15.1); White Blood Count 8.45 10^3/uL (3.29-11.43)
--- NOTE | 2024-06-01 15:55 | PC.NURSE ---
HCT 49.6 per Mame OATES pt does not need phlebotomy today
[2024-06-15 12:35] LABS: Basophils % 0.4 %; Eosinophils # 0.2 10^3/uL (0.0-0.8); Eosinophils % 2.1 %; Hematocrit 51.3 % (37-53); Lymphocytes % 22.4 %; Mean Corpuscular HGB Conc 33.5 g/dL (30-55); Mean Corpuscular Hemoglobin 33.5 pg (27-33); Mean Platelet Volume 9.6 fL (7.4-10.4); Monocytes # 0.9 10^3/uL (0.2-0.9); Monocytes % 10.2 %; Neutrophils # 5.74 10^3/uL (1.8-7.7); Neutrophils % 64.6 %; Nucleated Red Blood Cells % 0 %; Platelet Count 253 10^3/cmm (157-399); Red Blood Count 5.13 10^6/uL (3.85-5.65); Red Cell Distribution Width 13.9 % (12.1-15.1); White Blood Count 8.91 10^3/uL (3.29-11.43)
[2024-06-15 14:57] VITALS: BP 119/74; PULSE 64; RESP 16; TEMP 36.6; O2SAT 93
[2024-06-22 14:03] LABS: Basophils % 0.4 %; Eosinophils # 0.1 10^3/uL (0.0-0.8); Eosinophils % 1.5 %; Hematocrit 47.7 % (37-53); Lymphocytes # 1.9 10^3/uL (0.8-4.8); Lymphocytes % 20.7 %; Mean Corpuscular HGB Conc 33.3 g/dL (30-55); Mean Platelet Volume 9.5 fL (7.4-10.4); Monocytes # 0.8 10^3/uL (0.2-0.9); Monocytes % 8.6 %; Neutrophils # 6.25 10^3/uL (1.8-7.7); Neutrophils % 68.4 %; Nucleated Red Blood Cells % 0 %; Platelet Count 267 10^3/cmm (157-399); Red Blood Count 4.82 10^6/uL (3.85-5.65); Red Cell Distribution Width 13.6 % (12.1-15.1); White Blood Count 9.16 10^3/uL (3.29-11.43)
--- NOTE | 2024-06-22 14:47 | N.ONRAD NP_ITS ---
Radiation Oncology New Patient Visit Patient: Jason Thurman MR#: [id number] : 1965> Age: 59> Sex: Male> Dictated by: Dr. Fernanda Allison Date of Service: 06/22/2024 Referring Physician(s) : Gavin Loredo M.D. 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 Chief Complaint / History of Present Illness: Patient recounts how about Thanksgiving he began to notice some soreness in his throat and hoarseness which developed later in the day. He was also dealing with increasing problems associated with sleep apnea and polycythemia. He underwent evaluation for both of these things over the intervening months. He did see Dr. 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 He had a PET scan done which did not show any abnormalities other than mild uptake at the right anterior vocal cord and also bilateral osteonecrosis of the femoral heads. 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 Current Medications: albuterol sulfate 90 mcg/actuation (ProAir HFA) 2 puffs inhalation Q6H PRN, albuterol sulfate 2.5 mg (3 mL) inhalation Q4H PRN, allopurinol 300 mg PO BID, amlodipine 10 mg PO DAILY, bupropion HCl (Wellbutrin SR) 150 mg PO Q12H, cholecalciferol (vitamin D3) (Vitamin D3) 25 mcg PO DAILY, clopidogrel (Plavix) 75 mg PO DAILY, [CPAP machine and supplies As directed], fenofibrate nanocrystallized (Tricor) 145 mg PO DAILy, fluticasone propion-salmeterol 500-50 mcg/dose (Advair Diskus) 1 inh inhalation Q12H, fluticasone propionate 50 mcg/actuation (Flonase Allergy Relief) 2 sprays intranasal DAILY, furosemide (Lasix) 40mg AM 20mg PM orally; , hydrocodone-acetaminophen 5-325 mg tabs PO PRN, metoprolol succinate ER (Toprol XL) 50 mg PO DAILY, montelukast (Singulair) 10 mg PO DAILY, nitroglycerin (Nitrostat) 0.4 mg sublingual Q5M PRN, nystatin 5 mL PO TI[oxygen mask As directed] , tiotropium bromide (Spiriva with HandiHaler) 1 cap inhalation DAILY, varenicline (Chantix Starting Month Box) PO PER PKG DIR, vitamin V61-ylqvy acid 2,500-400 mcg 1 tab PO DAILY, zonisamide (Zonegran) 100 mg PO BID Allergies: No Known Allergies Allergy (Verified 06/15/24 13:10) Medical History: No previous radiation therapy. Anxiety associated with depression, Hyperlipidemia, Gout, Obstructive sleep apnea-Patient reports he is intolerant of mask, Cigarette smoker, Seasonal allergic rhinitis due to pollen, COPD (chronic obstructive pulmonary disease), Essential (primary) hypertension Surgical History: History of hand surgery, History of open reduction and internal fixation (ORIF) procedure- Right tib/fib Family History: Diabetes, Heart disease Social History: Smoking and tobacco/nicotine status: light tobacco/nicotine user, Second hand smoke exposure: No, Alcohol intake: current Alcohol intake frequency: holidays/special occasions only, Substance/Drug Use: never, Adopted: No, Caregiver/support person: No, Lives independently: Yes Household members: spouse, Housing: House, Marital status: , Number of children: 2, service: No, Current occupational status: employed, Do you think of yourself as: Straight/Heterosexual Current gender identity: Male Current Complaints / Review of Systems: . Bilateral hip pain, low back pain, sore throat and hoarseness that develops as the day progresses Vital Signs: Performed on 06/22/2024 1:42 PM BMI - 49.503 kg/m2 (high), Height - 70 in, Weight - 345.0 lbs, Temperature - 98 f, Pulse - 75 /min, Respiration - 18 /min, O2 Sat - 97 %, Pain - 0, Fatigue - 0 and BP - 128/ 71 mm(hg). Physical Exam: General patient is in no apparent distress accompanied today by his HEENT: Normocephalic atraumatic. Pupils are equal, sclera clear, extraocular muscles intact. Voice quality appears to be good without current evidence of hoarseness Pulmonary: Respiratory rate is regular and nonlabored Cardiovascular: Regular rate and rhythm Abdomen: Patient is morbidly obese Neurological: Alert and orient x 3. Gait and speech within normal limits Psych: Affect is normal for current situation performance Status: 80 Pathology: Lab: Imaging: See HPI Impression: Stage I squamous cell carcinoma of the false vocal cord Plan: We reviewed how the treatment options were either surgery or radiation. He is previously met with Dr. Mills and based on the fact that surgery would remove a good portion of the larynx he is elected to proceed with the radiation option. We discussed the simulation process. We reviewed the daily treatment regiment. We discussed the risks and side effects both acute and long-term. We discussed the high cure rate and the risk of failure. All of his questions were answered. At this point he is agreed to proceed. He will undergo simulation and begin his treatment shortly thereafter. Signed by: 06/22/2024 2:45:38 PM <<Signature on File>> Time spent with patient:45 CPT Code: CPT Code:
--- NOTE | 2024-06-28 15:31 | ONCRAD TMN_ITS ---
Radiation Oncology Weekly Treatment Management Patient: Jason Thurman MR#: [id number] : 1965> Attending Physician: Dr. Fernanda Allison Date of Service: 06/28/2024 Fractions 1 out of 29 Referring Physician(s) : Gavin Loredo M.D. 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 ID: [id number], Energy: 6X, Dose/Fx (cGy): 225, #Fx: , Dose Correction (cGy): 0, Total Dose Delivered (cGy): 225, Start Date: 06/28/2024, Elapsed Days: 0 Reason for visit: The patient is being seen today as part of their regularly scheduled weekly on treatment visits to assess for acute toxicities from radiotherapy. Review of Systems: Patient had no additional questions or concerns. Vital Signs: Performed on 06/28/2024 2:57 PM BMI - 49.503 kg/m2 (high), Height - 70 in, Weight - 345 lbs, Temperature - 98.1 f, Pulse - 77 /min, Respiration - 20 /min, O2 Sat - 96 %, Pain - 0, Fatigue - 0 and BP - 155/ 85 mm(hg)(high/). Physical Exam: No changes on exam Imaging: Radiation therapy imaging related to accurate target localization (i.e. KV, MV and CBCT) was reviewed. Appropriate changes, if any, were made to ensure treatment accuracy. Plan: Will continue with treatments as planned Signed by: Dr. Fernanda Allison 06/28/2024 3:29:18 PM
[2024-06-29 08:26] LABS: Basophils % 0.5 %; Eosinophils # 0.1 10^3/uL (0.0-0.8); Eosinophils % 1.9 %; Lymphocytes # 2.1 10^3/uL (0.8-4.8); Lymphocytes % 28.3 %; Mean Corpuscular HGB Conc 34.8 g/dL (30-55); Mean Corpuscular Hemoglobin 33.7 pg (27-33); Mean Platelet Volume 9.5 fL (7.4-10.4); Monocytes # 0.7 10^3/uL (0.2-0.9); Monocytes % 9.5 %; Neutrophils # 4.39 10^3/uL (1.8-7.7); Neutrophils % 59.5 %; Nucleated Red Blood Cells % 0 %; Platelet Count 278 10^3/cmm (157-399); Red Blood Count 4.95 10^6/uL (3.85-5.65); Red Cell Distribution Width 13.4 % (12.1-15.1); White Blood Count 7.38 10^3/uL (3.29-11.43)
== END 2024-06-29 23:59 | disposition home or self-care (01) ==
PROVIDERS: Internal Medicine; Nurse Practitioner Family; PCP Nurse Practitioner; Visit Provider Internal Medicine
DX: Z53.9 Procedure and treatment not carried out, unspecified reason (principal); Z51.0 Encounter for antineoplastic radiation therapy; E83.119 Hemochromatosis, unspecified
CPT/HCPCS: 36415; 77300; 77301; 77334; 77338; 77386; 85025; 99024; 99195; 99205; 99214

== ENCOUNTER 2024-07-19 09:30 | Oncology outpatient (recurring) (ONCR) | payer MEDICARE, MEDICAID, SELFPAY ==
--- NOTE | 2024-07-05 09:40 | ONCRAD TMN_ITS ---
Radiation Oncology Weekly Treatment Management Patient: Olman Faustin MR#: [id number] : 1965> Attending Physician: Dr. Fernanda Allison Date of Service: 07/05/2024 Fractions: Referring Physician(s) : Gavin Loredo M.D. 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 ID: [id number], Energy: 6X, Dose/Fx (cGy): 225, #Fx: , Dose Correction (cGy): 0, Total Dose Delivered (cGy): 1,350, Start Date: 06/28/2024, Elapsed Days: 7 Reason for visit: The patient is being seen today as part of their regularly scheduled weekly on treatment visits to assess for acute toxicities from radiotherapy. Review of Systems: Patient has noticed no changes other than the soreness has decreased. Vital Signs: Performed on 07/05/2024 9:30 AM BMI - 49.818 kg/m2 (high), Height - 70 in, Weight - 347.2 lbs, Temperature - 97.9 f, Pulse - 79 /min, Respiration - 18 /min, O2 Sat - 94 % (low), Pain - 0, Fatigue - 0 and BP - 113/ 69 mm(hg). Physical Exam: On exam his skin is without changes. His voice quality remains the same Imaging: Radiation therapy imaging related to accurate target localization (i.e. KV, MV and CBCT) was reviewed. Appropriate changes, if any, were made to ensure treatment accuracy. Plan: Will continue with his treatments as planned Signed by: Dr. Fernanda Allison 07/05/2024 9:39:24 AM
--- NOTE | 2024-07-12 10:32 | ONCRAD TMN_ITS ---
Radiation Oncology Weekly Treatment Management Patient: Jason Thurman MR#: [id number] : 1965> Attending Physician: Dr. Fernanda Allison Date of Service: 07/12/2024 Fractions: 11 out of 29 Referring Physician(s) : Gavin Loredo M.D. 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 ID: [id number], Energy: 6X, Dose/Fx (cGy): 225, #Fx: , Dose Correction (cGy): 0, Total Dose Delivered (cGy): 2,475, Start Date: 06/28/2024, Elapsed Days: 14 Reason for visit: The patient is being seen today as part of their regularly scheduled weekly on treatment visits to assess for acute toxicities from radiotherapy. Review of Systems: Only thing the patient has noticed this week he said his throat is a little dry. He still eating normally. Vital Signs: Performed on 07/12/2024 10:04 AM BMI - 49.962 kg/m2 (high), Height - 70 in, Weight - 348.2 lbs, Temperature - 97.8 f, Pulse - 77 /min, Respiration - 18 /min, O2 Sat - 96 %, Pain - 0, Fatigue - 0 and BP - 138/ 73 mm(hg). Physical Exam: Skin is without changes Imaging: Radiation therapy imaging related to accurate target localization (i.e. KV, MV and CBCT) was reviewed. Appropriate changes, if any, were made to ensure treatment accuracy. Plan: Continue with treatments as planned Signed by: Dr. Fernanda Allison 07/12/2024 10:31:25 AM
[2024-07-13 14:04] LABS: Basophils % 0.5 %; Eosinophils # 0.1 10^3/uL (0.0-0.8); Eosinophils % 1.1 %; Hematocrit 48.9 % (37-53); Lymphocytes # 1.7 10^3/uL (0.8-4.8); Lymphocytes % 19.3 %; Mean Corpuscular HGB Conc 33.5 g/dL (30-55); Mean Corpuscular Hemoglobin 33.7 pg (27-33); Mean Corpuscular Volume 100.6 fl (82-101); Mean Platelet Volume 9.5 fL (7.4-10.4); Monocytes # 0.8 10^3/uL (0.2-0.9); Monocytes % 8.7 %; Neutrophils # 6.15 10^3/uL (1.8-7.7); Neutrophils % 70.2 %; Nucleated Red Blood Cells % 0 %; Platelet Count 239 10^3/cmm (157-399); Red Blood Count 4.86 10^6/uL (3.85-5.65); Red Cell Distribution Width 13.2 % (12.1-15.1); White Blood Count 8.76 10^3/uL (3.29-11.43)
--- NOTE | 2024-07-19 11:09 | ONCRAD TMN_ITS ---
Radiation Oncology Weekly Treatment Management Patient: Nikolai Thurman MR#: [id number] : 1965 Attending Physician: Dr. Fernanda Allison Date of Service: 07/19/2024 Fractions: 16 out of 29 Referring Physician(s) : Gavin Loredo M.D. 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 ID: [id number], Energy: 6X, Dose/Fx (cGy): 225, #Fx: , Dose Correction (cGy): 0, Total Dose Delivered (cGy): 3,600, Start Date: 06/28/2024, Elapsed Days: Reason for visit: The patient is being seen today as part of their regularly scheduled weekly on treatment visits to assess for acute toxicities from radiotherapy. Review of Systems: Patient at the end of last week began to develop a sore throat. He said it was worse on Thursday and got a little better he on Thursday. Was a little better on Thursday as well. He has switched to softer foods. He is not really using his pain medicine but is using the Magic mix on occasion Vital Signs: Performed on 07/19/2024 9:28 AM BMI - 49.302 kg/m2 (high), Height - 70 in, Weight - 343.6 lbs, Temperature - 97.6 f, Pulse - 84 /min, Respiration - 18 /min, O2 Sat - 99 %, Pain - 10, Fatigue - 0 and BP - 128/ 79 mm(hg). Physical Exam: No changes on exam are noted. Skin is without changes Imaging: Radiation therapy imaging related to accurate target localization (i.e. KV, MV and CBCT) was reviewed. Appropriate changes, if any, were made to ensure treatment accuracy. Plan: I encouraged him at this point to go ahead and take his pain pill even if he only takes half 2 or 3 times a day. We discussed how typically the sore throat we usually resolve in the next few days. Will otherwise continue with his treatments as planned. Signed by: Dr. Fernanda Allison 07/19/2024 11:07:12 AM
== END 2024-07-19 23:59 | disposition home or self-care (01) ==
PROVIDERS: Nurse Practitioner Family; PCP Nurse Practitioner; Visit Provider Radiology Radiation Oncology
DX: Z51.0 Encounter for antineoplastic radiation therapy (principal); C32.1 Malignant neoplasm of supraglottis
CPT/HCPCS: 36415; 77336; 77386; 85025; 99024; 99214

== ENCOUNTER 2024-07-20 06:00 | Oncology outpatient (recurring) (ONCR) | payer MEDICARE, MEDICAID, SELFPAY | END 2024-07-30 23:59 | disposition home or self-care (01) | LOC: ONCMED 08-04 12:09 | PROVIDERS: PCP Nurse Practitioner; Visit Provider Radiology Radiation Oncology | DX: Z51.0 Encounter for antineoplastic radiation therapy (principal); C32.1 Malignant neoplasm of supraglottis | CPT/HCPCS: 77014; 77386 ==

== ENCOUNTER 2024-07-29 09:23 | Oncology outpatient (recurring) (ONCR) | payer MEDICARE, MEDICAID, SELFPAY ==
--- NOTE | 2024-07-26 10:21 | ONCRAD TMN_ITS ---
Radiation Oncology Weekly Treatment Management Patient: Olman Faustin MR#: [id number] : 1965> Attending Physician: Dr. Fernanda Allison Date of Service: 07/26/2024 Fractions: 21 out of 29 Referring Physician(s) : Gavin Loredo M.D. 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 ID: [id number], Energy: 6X, Dose/Fx (cGy): 225, #Fx: , Dose Correction (cGy): 0, Total Dose Delivered (cGy): 4,725, Start Date: 06/28/2024, Elapsed Days: 28 Reason for visit: The patient is being seen today as part of their regularly scheduled weekly on treatment visits to assess for acute toxicities from radiotherapy. Review of Systems: He continues to have a sore throat. He visited with ENT last Thursday. They started him on antibiotics and steroids. He is taking prednisone 20 mg a day. He is put triple antibiotic ointment on the treated skin 1 time with good resolution of soreness. He has maintained his weight. Vital Signs: Performed on 07/26/2024 9:22 AM BMI - 49.187 kg/m2 (high), Height - 70 in, Weight - 342.8 lbs, Temperature - 97.9 f, Pulse - 97 /min, Respiration - 18 /min, O2 Sat - 94 % (low), Pain - 7, Fatigue - 8 and BP - 161/ 84 mm(hg)(high/). Physical Exam: On exam the skin in the radiated portal is mildly erythematous. Imaging: Radiation therapy imaging related to accurate target localization (i.e. KV, MV and CBCT) was reviewed. Appropriate changes, if any, were made to ensure treatment accuracy. Plan: Will continue with his treatments as planned. He will get a break because of the holiday on Thursday. I encouraged him to make sure he gets off his steroids as soon as possible. He recounts how he was on steroids for 2 years which caused his weight to go from 150 to 300 pounds. Signed by: Dr. Fernanda Allison 07/26/2024 10:20:47 AM
[2024-07-27 08:45] LABS: Basophils % 0.3 %; Eosinophils % 0.1 %; Hematocrit 51.7 % (37-53); Lymphocytes # 1.1 10^3/uL (0.8-4.8); Lymphocytes % 9.3 %; Mean Corpuscular HGB Conc 33.1 g/dL (30-55); Mean Corpuscular Hemoglobin 32.9 pg (27-33); Mean Corpuscular Volume 99.6 fl (82-101); Mean Platelet Volume 9.3 fL (7.4-10.4); Monocytes # 0.7 10^3/uL (0.2-0.9); Monocytes % 5.7 %; Neutrophils # 9.61 10^3/uL (1.8-7.7); Neutrophils % 84.4 %; Nucleated Red Blood Cells % 0 %; Platelet Count 315 10^3/cmm (157-399); Red Blood Count 5.19 10^6/uL (3.85-5.65); Red Cell Distribution Width 13.2 % (12.1-15.1); White Blood Count 11.38 10^3/uL (3.29-11.43)
[2024-07-27 08:57] LABS: Alanine Aminotransferase 28 U/L (0-41); Albumin Level 4.4 g/dL (3.5-5.2); Alkaline Phosphatase 74 U/L (40-130); Anion Gap 17.2 (5-19); Aspartate Amino Transferase 15 U/L (0-40); Blood Urea Nitrogen 16 mg/dL (6-20); Calcium 9.5 mg/dL (8.5-10.5); Carbon Dioxide 28 mmol/L (22-29); Chloride 99 mmol/L (98-107); Globulin 3.3 g/dL (1.3-4.6); Glomerular Filtration Rate 98.9 mL/min (90-130); Glucose 134 mg/dL (65-115); Osmolality Calculated 293 mOsm/kg (285-295); Potassium 4.2 mmol/L (3.5-5.1); Sodium 140 mmol/L (136-145); Total Bilirubin 0.3 mg/dL (0.15-1.2); Total Protein 7.7 g/dL (6.6-8.7)
[2024-07-27 09:38] VITALS: BP 132/86; PULSE 80; RESP 16; TEMP 36.6; O2SAT 96
== END 2024-07-30 23:59 | disposition home or self-care (01) ==
PROVIDERS: Nurse Practitioner Family; PCP Nurse Practitioner; Visit Provider Internal Medicine Medical Oncology
DX: Z51.0 Encounter for antineoplastic radiation therapy (principal); C32.1 Malignant neoplasm of supraglottis
CPT/HCPCS: 36415; 77336; 77386; 80053; 85025; 99024; 99195

== ENCOUNTER 2024-08-04 14:58 | Oncology outpatient (recurring) (ONCR) | payer MEDICARE, MEDICAID, SELFPAY | END 2024-08-29 23:59 | disposition home or self-care (01) | PROVIDERS: PCP Nurse Practitioner; Visit Provider Radiology Radiation Oncology | DX: Z51.0 Encounter for antineoplastic radiation therapy (principal); C32.1 Malignant neoplasm of supraglottis | CPT/HCPCS: 77386 ==

== ENCOUNTER 2024-08-10 14:00 | Oncology outpatient (recurring) (ONCR) | payer MEDICARE, MEDICAID, SELFPAY ==
--- NOTE | 2024-08-02 10:15 | ONCRAD TMN_ITS ---
Radiation Oncology Weekly Treatment Management Patient: Jason Thurman MR#: [id number] : 1965> Attending Physician: Dr. Fernanda Allison Date of Service: 08/02/2024 Fractions: 25 out of 29 Referring Physician(s) : Gavin Loredo M.D. 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 ID: [id number], Energy: 6X, Dose/Fx (cGy): 225, #Fx: , Dose Correction (cGy): 0, Total Dose Delivered (cGy): 5,625, Start Date: 06/28/2024, Elapsed Days: 35 Reason for visit: The patient is being seen today as part of their regularly scheduled weekly on treatment visits to assess for acute toxicities from radiotherapy. Review of Systems: Patient throat is still sore. He is using Tylenol on a schedule. He is also sucking on a lot of [place] rancher's which appear to help quite a bit. Vital Signs: Performed on 08/02/2024 9:45 AM BMI - 49.445 kg/m2 (high), Height - 70 in, Weight - 344.6 lbs, Temperature - 98.3 f, Pulse - 91 /min, Respiration - 18 /min, O2 Sat - 97 %, Pain - 7, Fatigue - 7 and BP - 132/ 77 mm(hg). Physical Exam: His skin is erythematous and he has moist desquamation in one of the creases. Imaging: Radiation therapy imaging related to accurate target localization (i.e. KV, MV and CBCT) was reviewed. Appropriate changes, if any, were made to ensure treatment accuracy. Plan: Will continue with his treatments as planned we talked about the recovery. Taking 2 to 3 weeks after we complete treatments. He has maintained his weight and actually went up 2 pounds this week. I encouraged him to take his Tylenol and told him he can add ibuprofen as well. We talked about using honey and even some of the throat lozenges that will help when you have a sore throat from a cold. Signed by: Dr. Fernanda Allison 08/02/2024 10:14:08 AM
--- NOTE | 2024-08-09 13:34 | N.ONRD TS_ITS ---
Radiation Oncology Treatment Summary Patient: Jason Thurman MR#: [id number] : 1965 Age: 59 Sex: Male Dictated by: Dr. Fernanda Allison Date of Service: 08/09/2024 Referring Physician(s) : Gavin Loredo M.D. 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 ID: [id number], Energy: 6X, Dose/Fx (cGy): 225, #Fx: / , Dose Correction (cGy): 0, Total Dose Delivered (cGy): 6,525, Start Date: 06/28/2024, End Date: 08/08/2024, Elapsed Days: 41 Clinical Summary: The patient tolerated RT well. He developed a sore throat and difficulty swallowing. He had a expected moderate skin reaction with erythema but no moist desquamation. Plan: End of treatment today. Continue on the above medication until the skin reaction resolves. Follow up in one month. Signed by: Dr. Fernanda Allison>08/09/2024 1:32:47 PM <<Signature on File>>
[2024-08-10 14:06] LABS: Basophils % 0.5 %; Eosinophils # 0.1 10^3/uL (0.0-0.8); Eosinophils % 1.4 %; Hematocrit 47.4 % (37-53); Lymphocytes # 1.4 10^3/uL (0.8-4.8); Lymphocytes % 15.8 %; Mean Corpuscular HGB Conc 33.5 g/dL (30-55); Mean Corpuscular Hemoglobin 33.3 pg (27-33); Mean Corpuscular Volume 99.4 fl (82-101); Mean Platelet Volume 9.3 fL (7.4-10.4); Monocytes # 0.7 10^3/uL (0.2-0.9); Monocytes % 8.1 %; Neutrophils # 6.53 10^3/uL (1.8-7.7); Neutrophils % 74.1 %; Nucleated Red Blood Cells % 0 %; Platelet Count 278 10^3/cmm (157-399); Red Blood Count 4.77 10^6/uL (3.85-5.65); Red Cell Distribution Width 13.3 % (12.1-15.1)
[2024-08-10 14:21] LABS: Alanine Aminotransferase 27 U/L (0-41); Albumin Level 4.2 g/dL (3.5-5.2); Alkaline Phosphatase 66 U/L (40-130); Anion Gap 16.2 (5-19); Aspartate Amino Transferase 17 U/L (0-40); Blood Urea Nitrogen 14 mg/dL (6-20); Calcium 9.4 mg/dL (8.5-10.5); Carbon Dioxide 26 mmol/L (22-29); Chloride 102 mmol/L (98-107); Globulin 2.6 g/dL (1.3-4.6); Glomerular Filtration Rate 98.9 mL/min (90-130); Glucose 112 mg/dL (65-115); Osmolality Calculated 291 mOsm/kg (285-295); Potassium 4.2 mmol/L (3.5-5.1); Sodium 140 mmol/L (136-145); Total Bilirubin 0.3 mg/dL (0.15-1.2); Total Protein 6.8 g/dL (6.6-8.7)
== END 2024-08-29 23:59 | disposition home or self-care (01) ==
PROVIDERS: Nurse Practitioner Family; PCP Nurse Practitioner; Visit Provider Radiology Radiation Oncology
DX: C32.1 Malignant neoplasm of supraglottis; D75.1 Secondary polycythemia; E83.119 Hemochromatosis, unspecified; Z53.9 Procedure and treatment not carried out, unspecified reason
CPT/HCPCS: 36415; 77336; 77386; 80053; 85025; 99024; 99213

== ENCOUNTER 2024-09-07 13:34 | Oncology outpatient (recurring) (ONCR) | payer MEDICARE, MEDICAID, SELFPAY ==
[2024-09-07 13:51] LABS: Basophils % 0.5 %; Eosinophils # 0.1 10^3/uL (0.0-0.8); Eosinophils % 1.4 %; Hematocrit 52.1 % (37-53); Lymphocytes # 1.6 10^3/uL (0.8-4.8); Lymphocytes % 20.4 %; Mean Corpuscular HGB Conc 32.6 g/dL (30-55); Mean Corpuscular Hemoglobin 33.3 pg (27-33); Mean Platelet Volume 9.3 fL (7.4-10.4); Monocytes # 0.6 10^3/uL (0.2-0.9); Monocytes % 7.9 %; Neutrophils # 5.34 10^3/uL (1.8-7.7); Neutrophils % 69.7 %; Nucleated Red Blood Cells % 0 %; Platelet Count 273 10^3/cmm (157-399); Red Blood Count 5.11 10^6/uL (3.85-5.65); Red Cell Distribution Width 12.8 % (12.1-15.1); White Blood Count 7.68 10^3/uL (3.29-11.43)
--- NOTE | 2024-09-07 14:08 | ONCRAD EPV_ITS ---
Radiation Oncology Established Patient Visit Patient: Jason Thurman [id number] : 1965 Age: 59 Sex: Male Dictated by: Dr. Fernanda Allison Date of Service: 09/07/2024 Referring Physician(s) : Gavin Loredo M.D. 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 He is doing well. His skin is healed nicely. Dr. Mills performed a scope last week and everything was clear. He will also be ordering a CT scan and PET scan down the line. His only complaint is that he notices his throat is dry when he wakes up in the morning. Current Medications: Allergies: Current Complaints / Review of Systems: . Vital Signs: Performed on 09/07/2024 1:54 PM BMI - 49.646 kg/m2 (high), Height - 70 in, Weight - 346 lbs, Temperature - 97.3 f, Pulse - 83 /min, Respiration - 18 /min, O2 Sat - 94 % (low), Pain - 0, Fatigue - 0 and BP - 159/ 75 mm(hg)(high/). Physical Exam: General: Alert and oriented x 3. No acute distress. HEENT: Normocephalic, atraumatic. Extraocular Movements Intact: Pupils Equal, Round, Reactive to Light oral cavity is clear without lesions or thrush. NECK: Supple without supraclavicular or jugular lymphadenopathy. The skin is completely healed in the area where the treatment was delivered Performance Status: 100 Lab: None pending. Pathology: Primary, c32.1 - malignant neoplasm of supraglottis, Diagnosed 06/22/2024 (active) . Imaging: See HPI Impression: Squamous cell carcinoma of the supraglottic larynx Plan: This point he is recovered nicely from his treatments. I have recommended that he get XyliMelts to use at bedtime to help with the dryness. He will otherwise follow-up with Dr. Mills for his scopes and scans. Signed by: 09/07/2024 2:06:17 PM <<Signature on File>> Time spent with patient:15 CPT Code: CPT Code:
[2024-09-07 15:17] VITALS: BP 156/76; PULSE 80; RESP 18; TEMP 36.6; O2SAT 94
== END 2024-09-29 23:59 | disposition home or self-care (01) ==
PROVIDERS: Nurse Practitioner Family; PCP Nurse Practitioner; Visit Provider Radiology Radiation Oncology
DX: C32.1 Malignant neoplasm of supraglottis (principal); Z08 Encounter for follow-up examination after completed treatment for malignant neoplasm; Z92.3 Personal history of irradiation
CPT/HCPCS: 36415; 85025

== ENCOUNTER 2024-09-20 08:06 | Outpatient (CLI) | payer MEDICARE, MEDICAID, SELFPAY ==
--- NOTE | 2024-09-20 08:11 | CT_ITS ---
WS: [id number] CT NECK TECHNIQUE: Contrast-enhanced CT of the neck with coronal and sagittal reformatted images. CLINICAL INFORMATION: MALIGNANT NEOPLASM OF OVERLAPPING SITES OF LARYNX COMPARISON: PET/CT 06/14/2024 DLP: 261.[address] scans at [facility] use at least one of these dose optimization techniques: automated e xposure control; mA and/or kV adjustment per patient size (includes targeted exams where dose is matc hed to clinical indication); or iterative reconstruction. FINDINGS: Mild supraglottic and glottic edema likely due to radiation therapy. Previously described PET/CT demo nstrated uptake in the RIGHT larynx. Mild thickening of the RIGHT vocal fold and vocal cord likely du e to treatment related changes. No focal enhancing mass. No evidence of metastatic disease today. Parotid glands are normal. Submandibular glands are normal. Normal posterior nasopharynx. Normal para pharyngeal fat. Mild epiglottic edema likely due to radiation therapy. Subglottic airway is patent. T hyroid gland appears normal. Lung apices are well aerated. Straightening of the normal cervical lordo sis. Moderate spondylitic changes. No cervical lymphadenopathy. CT/CT neck w con* [id number] IMPRESSION: 1. Mild supraglottic and glottic edema compatible with radiation therapy. No e nhancing focal soft tissue mass. 2. No cervical lymphadenopathy. 3. Normal salivary glands. 4. No other acute findings
[2024-09-20] MEDS: iohexol 350 mg/mL 500 mL Btl (per mL) IV (08:31)
== END 2024-09-20 08:07 | disposition home or self-care (01) ==
LOC: RAD 08:07
PROVIDERS: PCP Nurse Practitioner; Visit Provider Specialist
DX: C32.8 Malignant neoplasm of overlapping sites of larynx (principal); M47.812 Spondylosis without myelopathy or radiculopathy, cervical region
CPT/HCPCS: 70491

== ENCOUNTER 2024-10-05 13:07 | Oncology outpatient (recurring) (ONCR) | payer MEDICARE, MEDICAID, SELFPAY ==
[2024-10-05 13:27] LABS: Basophils % 0.5 %; Eosinophils # 0.2 10^3/uL (0.0-0.8); Eosinophils % 2.2 %; Hematocrit 47.4 % (37-53); Lymphocytes # 1.4 10^3/uL (0.8-4.8); Lymphocytes % 17.8 %; Mean Corpuscular HGB Conc 32.9 g/dL (30-55); Mean Corpuscular Hemoglobin 32.5 pg (27-33); Mean Corpuscular Volume 98.8 fl (82-101); Mean Platelet Volume 9.1 fL (7.4-10.4); Monocytes # 0.7 10^3/uL (0.2-0.9); Monocytes % 8.8 %; Neutrophils % 70.4 %; Nucleated Red Blood Cells % 0 %; Platelet Count 277 10^3/cmm (157-399); Red Cell Distribution Width 13.3 % (12.1-15.1); White Blood Count 7.81 10^3/uL (3.29-11.43)
[2024-10-05 14:09] LABS: Chol HDL Ratio 3.84 mg/dL (1.0-5.00); Cholesterol 173 mg/dL (0-200); HDL Cholesterol 45 mg/dL (60-100); LDL Cholesterol Calculated 81 mg/dL (50-129); Thyroid Stimulating Hormone 4.33 uIU/mL (0.27-4.20); Triglycerides 236 mg/dL (0-150)
== END 2024-10-29 23:59 | disposition home or self-care (01) ==
LOC: ONCMED 13:07
PROVIDERS: Nurse Practitioner Family; PCP Nurse Practitioner; Visit Provider Radiology Radiation Oncology
DX: D75.1 Secondary polycythemia; E78.1 Pure hyperglyceridemia
CPT/HCPCS: 36415; 80061; 84443; 85025; G0103

== ENCOUNTER → 2024-10-13 10:19 | Outpatient (BNVA) | payer MEDICARE, MEDICAID, SELFPAY | PROVIDERS: PCP Nurse Practitioner; Visit Provider Nurse Practitioner Family | DX: I10 Essential (primary) hypertension (principal); R06.09 Other forms of dyspnea | CPT/HCPCS: 99214 ==

== ENCOUNTER 2024-11-07 12:37 | Outpatient (CLI) | payer MEDICARE, MEDICAID, SELFPAY | END 2024-11-07 12:38 | disposition home or self-care (01) | LOC: RT 12:41 | PROVIDERS: PCP Nurse Practitioner; Visit Provider Nurse Practitioner Family | DX: R06.02 Shortness of breath (principal) | CPT/HCPCS: 94618 ==

== ENCOUNTER 2024-11-17 08:17 | Oncology outpatient (recurring) (ONCR) | payer MEDICARE, MEDICAID, SELFPAY ==
[2024-11-17 09:20] LABS: Basophils % 0.4 %; Eosinophils # 0.1 10^3/uL (0.0-0.8); Eosinophils % 1.4 %; Hematocrit 50.6 % (37-53); Lymphocytes # 1.3 10^3/uL (0.8-4.8); Lymphocytes % 17.6 %; Mean Corpuscular HGB Conc 32.6 g/dL (30-55); Mean Corpuscular Hemoglobin 33.1 pg (27-33); Mean Corpuscular Volume 101.4 fl (82-101); Mean Platelet Volume 9.3 fL (7.4-10.4); Monocytes # 0.6 10^3/uL (0.2-0.9); Monocytes % 8.4 %; Neutrophils # 5.12 10^3/uL (1.8-7.7); Neutrophils % 71.8 %; Nucleated Red Blood Cells % 0 %; Platelet Count 267 10^3/cmm (157-399); Red Blood Count 4.99 10^6/uL (3.85-5.65); Red Cell Distribution Width 13.9 % (12.1-15.1); White Blood Count 7.14 10^3/uL (3.29-11.43)
[2024-11-17 09:42] LABS: Alanine Aminotransferase 24 U/L (0-41); Albumin Level 4.3 g/dL (3.5-5.2); Alkaline Phosphatase 76 U/L (40-130); Blood Urea Nitrogen 9 mg/dL (6-20); Calcium 9.2 mg/dL (8.5-10.5); Carbon Dioxide 27 mmol/L (22-29); Chloride 99 mmol/L (98-107); Creatinine Clr Calc Pharmacy 134.3555; Globulin 2.8 g/dL (1.3-4.6); Glomerular Filtration Rate 86.4 mL/min (90-130); Glucose 132 mg/dL (65-115); Osmolality Calculated 287 mOsm/kg (285-295); Sodium 138 mmol/L (136-145); Total Bilirubin 0.4 mg/dL (0.15-1.2); Total Protein 7.1 g/dL (6.6-8.7)
[2024-11-17 09:47] LABS: Anion Gap 15.9 (5-19); Aspartate Amino Transferase 21 U/L (0-40); Potassium 3.9 mmol/L (3.5-5.1)
[2024-11-17 11:19] VITALS: BP 152/74; PULSE 78; RESP 18; TEMP 37; O2SAT 94
== END 2024-11-29 23:59 | disposition home or self-care (01) ==
PROVIDERS: Nurse Practitioner Family; PCP Nurse Practitioner; Visit Provider Radiology Radiation Oncology
DX: D75.1 Secondary polycythemia (principal); J96.90 Respiratory failure, unspecified, unspecified whether with hypoxia or hypercapnia; Z87.891 Personal history of nicotine dependence
CPT/HCPCS: 36415; 80053; 85025; 99195; 99214

== ENCOUNTER 2025-01-02 07:58 | Oncology outpatient (recurring) (ONCR) | payer MEDICARE, MEDICAID, SELFPAY ==
[2025-01-02 08:42] LABS: Basophils % 0.7 %; Eosinophils # 0.1 10^3/uL (0.0-0.8); Eosinophils % 1.4 %; Hematocrit 47.8 % (37-53); Lymphocytes # 1.2 10^3/uL (0.8-4.8); Lymphocytes % 20.6 %; Mean Corpuscular HGB Conc 32.8 g/dL (30-55); Mean Corpuscular Hemoglobin 32.6 pg (27-33); Mean Corpuscular Volume 99.4 fl (82-101); Mean Platelet Volume 9.6 fL (7.4-10.4); Monocytes # 0.4 10^3/uL (0.2-0.9); Neutrophils # 4.01 10^3/uL (1.8-7.7); Neutrophils % 70.1 %; Nucleated Red Blood Cells % 0 %; Platelet Count 239 10^3/cmm (157-399); Red Blood Count 4.81 10^6/uL (3.85-5.65); Red Cell Distribution Width 13.7 % (12.1-15.1); White Blood Count 5.72 10^3/uL (3.29-11.43)
== END 2025-01-27 23:59 | disposition home or self-care (01) ==
PROVIDERS: Nurse Practitioner Family; PCP Nurse Practitioner; Visit Provider Radiology Radiation Oncology
DX: D75.1 Secondary polycythemia (principal)
CPT/HCPCS: 85025

== ENCOUNTER 2025-02-15 12:34 | Oncology outpatient (recurring) (ONCR) | payer MEDICARE, MEDICAID, SELFPAY ==
[2025-02-15 13:56] LABS: Basophils % 0.6 %; Eosinophils # 0.1 10^3/uL (0.0-0.8); Eosinophils % 1.5 %; Hematocrit 50.7 % (37-53); Lymphocytes # 1.5 10^3/uL (0.8-4.8); Lymphocytes % 20.8 %; Mean Corpuscular HGB Conc 32.7 g/dL (30-55); Mean Corpuscular Hemoglobin 33.1 pg (27-33); Mean Corpuscular Volume 101.2 fl (82-101); Mean Platelet Volume 9.4 fL (7.4-10.4); Monocytes # 0.8 10^3/uL (0.2-0.9); Monocytes % 10.7 %; Neutrophils # 4.72 10^3/uL (1.8-7.7); Neutrophils % 66.3 %; Nucleated Red Blood Cells % 0 %; Platelet Count 263 10^3/cmm (157-399); Red Blood Count 5.01 10^6/uL (3.85-5.65); White Blood Count 7.12 10^3/uL (3.29-11.43)
[2025-02-15 14:25] LABS: Alanine Aminotransferase 23 U/L (0-41); Albumin Level 4.1 g/dL (3.5-5.2); Alkaline Phosphatase 76 U/L (40-130); Anion Gap 14.8 (5-19); Aspartate Amino Transferase 17 U/L (0-40); Blood Urea Nitrogen 12 mg/dL (8-23); Calcium 9.2 mg/dL (8.5-10.5); Carbon Dioxide 27 mmol/L (22-29); Chloride 100 mmol/L (98-107); Globulin 2.9 g/dL (1.3-4.6); Glomerular Filtration Rate 86.1 mL/min (90-130); Glucose 97 mg/dL (65-115); Osmolality Calculated 286 mOsm/kg (285-295); Potassium 3.8 mmol/L (3.5-5.1); Sodium 138 mmol/L (136-145); Thyroid Stimulating Hormone 3.85 uIU/mL (0.27-4.20); Total Bilirubin 0.3 mg/dL (0.15-1.2)
[2025-02-15 15:38] VITALS: BP 142/75; PULSE 69; RESP 18; TEMP 37.2; O2SAT 92
== END 2025-02-27 23:59 | disposition home or self-care (01) ==
LOC: ONCMED 12:34
PROVIDERS: Nurse Practitioner Family; PCP Nurse Practitioner; Visit Provider Radiology Radiation Oncology
DX: D75.1 Secondary polycythemia (principal); E78.1 Pure hyperglyceridemia; R00.2 Palpitations
CPT/HCPCS: 80053; 84443; 85025; 99195

== ENCOUNTER 2025-04-04 15:45 | Oncology outpatient (recurring) (ONCR) | payer MEDICARE, MEDICAID, SELFPAY ==
[2025-03-30 14:57] LABS: Basophils % 0.5 %; Eosinophils # 0.1 10^3/uL (0.0-0.8); Hematocrit 49.5 % (37-53); Lymphocytes # 1.3 10^3/uL (0.8-4.8); Lymphocytes % 20.4 %; Mean Corpuscular HGB Conc 32.7 g/dL (30-55); Mean Corpuscular Hemoglobin 32.6 pg (27-33); Mean Corpuscular Volume 99.6 fl (82-101); Mean Platelet Volume 9.4 fL (7.4-10.4); Monocytes # 0.7 10^3/uL (0.2-0.9); Monocytes % 10.4 %; Neutrophils # 4.37 10^3/uL (1.8-7.7); Neutrophils % 66.5 %; Nucleated Red Blood Cells % 0 %; Platelet Count 263 10^3/cmm (157-399); Red Blood Count 4.97 10^6/uL (3.85-5.65); Red Cell Distribution Width 13.9 % (12.1-15.1); White Blood Count 6.56 10^3/uL (3.29-11.43)
[2025-03-30 15:13] LABS: Alanine Aminotransferase 21 U/L (0-41); Alkaline Phosphatase 72 U/L (40-130); Aspartate Amino Transferase 17 U/L (0-40); Blood Urea Nitrogen 15 mg/dL (8-23); Carbon Dioxide 27 mmol/L (22-29); Chloride 104 mmol/L (98-107); Globulin 3.2 g/dL (1.3-4.6); Glomerular Filtration Rate 86.1 mL/min (90-130); Glucose 103 mg/dL (65-115); Osmolality Calculated 293 mOsm/kg (285-295); Sodium 141 mmol/L (136-145); Total Bilirubin 0.2 mg/dL (0.15-1.2); Total Protein 7.2 g/dL (6.6-8.7)
[2025-03-30 15:27] LABS: Anion Gap 13.9 (5-19); Potassium 3.9 mmol/L (3.5-5.1)
== END 2025-04-29 23:59 | disposition home or self-care (01) ==
PROVIDERS: Internal Medicine; PCP Nurse Practitioner; Visit Provider Radiology Radiation Oncology
DX: D75.1 Secondary polycythemia; R03.0 Elevated blood-pressure reading, without diagnosis of hypertension; J96.90 Respiratory failure, unspecified, unspecified whether with hypoxia or hypercapnia; Z87.891 Personal history of nicotine dependence; Z99.81 Dependence on supplemental oxygen; Z53.9 Procedure and treatment not carried out, unspecified reason; I10 Essential (primary) hypertension; I73.9 Peripheral vascular disease, unspecified; R06.09 Other forms of dyspnea; Z79.01 Long term (current) use of anticoagulants; F17.200 Nicotine dependence, unspecified, uncomplicated
CPT/HCPCS: 36415; 80053; 85025; 99195; 99214

== ENCOUNTER 2025-05-16 14:10 | Oncology outpatient (recurring) (ONCR) | payer MEDICARE, SELFPAY ==
[2025-05-16 14:28] LABS: Basophils % 0.4 %; Eosinophils # 0.1 10^3/uL (0.0-0.8); Eosinophils % 1.3 %; Hematocrit 50.8 % (37-53); Lymphocytes # 1.6 10^3/uL (0.8-4.8); Lymphocytes % 20.7 %; Mean Corpuscular HGB Conc 32.7 g/dL (30-55); Mean Corpuscular Hemoglobin 32.4 pg (27-33); Mean Platelet Volume 9.2 fL (7.4-10.4); Monocytes # 0.7 10^3/uL (0.2-0.9); Monocytes % 8.7 %; Neutrophils # 5.27 10^3/uL (1.8-7.7); Neutrophils % 68.8 %; Nucleated Red Blood Cells % 0 %; Platelet Count 275 10^3/cmm (157-399); Red Blood Count 5.13 10^6/uL (3.85-5.65); Red Cell Distribution Width 13.8 % (12.1-15.1); White Blood Count 7.67 10^3/uL (3.29-11.43)
== END 2025-05-29 23:59 | disposition home or self-care (01) ==
PROVIDERS: Nurse Practitioner Family; PCP Nurse Practitioner; Visit Provider Radiology Radiation Oncology
DX: D75.1 Secondary polycythemia (principal)
CPT/HCPCS: 36415; 85025; 99195

== ENCOUNTER 2025-07-04 13:01 | Oncology outpatient (recurring) (ONCR) | payer MEDICARE, SELFPAY ==
[2025-07-04 13:49] LABS: Hematocrit 48.6 % (37-53); Hemoglobin 16.10 g/dL (11.27-16.99); Mean Corpuscular HGB Conc 33.1 g/dL (30-55); Mean Corpuscular Hemoglobin 32.9 pg (27-33); Mean Corpuscular Volume 99.2 fl (82-101); Nucleated Red Blood Cells % 0 %; Platelet Count 261 10^3/cmm (157-399); Red Blood Count 4.90 10^6/uL (3.85-5.65); White Blood Count 6.31 10^3/uL (3.29-11.43)
[2025-07-04 14:09] LABS: Alanine Aminotransferase 30 U/L (0-41); Albumin Level 4.0 g/dL (3.5-5.2); Alkaline Phosphatase 93 U/L (40-130); Anion Gap 14.6 (5-19); Aspartate Amino Transferase 23 U/L (0-40); Blood Urea Nitrogen 8 mg/dL (8-23); Calcium 9.4 mg/dL (8.5-10.5); Carbon Dioxide 28 mmol/L (22-29); Chloride 104 mmol/L (98-107); Cholesterol 158 mg/dL (0-200); Creatinine Clr Calc Pharmacy 149.7878; Globulin 2.8 g/dL (1.3-4.6); Glucose 118 mg/dL (65-115); HDL Cholesterol 37 mg/dL (60-100); Osmolality Calculated 295 mOsm/kg (285-295); Potassium 3.6 mmol/L (3.5-5.1); Sodium 143 mmol/L (136-145); Thyroid Stimulating Hormone 3.70 uIU/mL (0.27-4.20); Total Protein 6.8 g/dL (6.6-8.7); Triglycerides 259 mg/dL (0-150); VLDL Cholestrol Calculation 52 mg/dL (0-30)
[2025-07-04 15:13] VITALS: BP 152/83; PULSE 88; RESP 18; TEMP 36.7; O2SAT 97
== END 2025-07-30 23:59 | disposition home or self-care (01) ==
PROVIDERS: Nurse Practitioner Family; PCP Nurse Practitioner; Visit Provider Nurse Practitioner
DX: D75.1 Secondary polycythemia (principal); I10 Essential (primary) hypertension; R03.0 Elevated blood-pressure reading, without diagnosis of hypertension
CPT/HCPCS: 36415; 80053; 80061; 84443; 85025; 99195; 99214

== ENCOUNTER 2025-10-03 12:27 | Oncology outpatient (recurring) (ONCR) | payer MEDICARE, SELFPAY ==
[2025-10-03 12:54] LABS: Hematocrit 53.6 % (37-53); Hemoglobin 17.40 g/dL (11.27-16.99); Mean Corpuscular HGB Conc 32.5 g/dL (30-55); Mean Corpuscular Hemoglobin 31.6 pg (27-33); Mean Corpuscular Volume 97.5 fl (82-101); Nucleated Red Blood Cells % 0 %; Platelet Count 317 10^3/cmm (157-399); Red Blood Count 5.50 10^6/uL (3.85-5.65); White Blood Count 7.77 10^3/uL (3.29-11.43)
[2025-10-03 13:13] LABS: Alanine Aminotransferase 26 U/L (0-41); Albumin Level 4.2 g/dL (3.5-5.2); Alkaline Phosphatase 82 U/L (40-130); Anion Gap 15.6 (5-19); Aspartate Amino Transferase 20 U/L (0-40); Blood Urea Nitrogen 9 mg/dL (8-23); Calcium 9.2 mg/dL (8.5-10.5); Carbon Dioxide 23 mmol/L (22-29); Chloride 105 mmol/L (98-107); Globulin 2.9 g/dL (1.3-4.6); Glucose 154 mg/dL (65-115); Osmolality Calculated 292 mOsm/kg (285-295); Potassium 3.6 mmol/L (3.5-5.1); Sodium 140 mmol/L (136-145); Total Protein 7.1 g/dL (6.6-8.7)
[2025-10-03 13:47] VITALS: BP 125/62; PULSE 74; RESP 17; TEMP 36.8; O2SAT 96
== END 2025-10-29 23:59 | disposition home or self-care (01) ==
PROVIDERS: Internal Medicine Medical Oncology; PCP Nurse Practitioner; Visit Provider Nurse Practitioner
DX: D75.1 Secondary polycythemia (principal); R03.0 Elevated blood-pressure reading, without diagnosis of hypertension; Z87.891 Personal history of nicotine dependence
CPT/HCPCS: 36415; 80053; 85025; 99195; 99213